=== PATIENT | female | born 1945 | race Caucasian/White ===

== ENCOUNTER 2022-06-14 07:07 | Inpatient (IN) | payer MEDICARE, MEDICAID, SELFPAY ==
--- NOTE | ~2022-06-14 | XR_ITS ---
EXAMINATION: XR chest 1V CLINICAL INFORMATION: Reason for Exam ?Infiltrate on CT COMPARISON: None TECHNIQUE: XR chest 1V Tubes and lines: None Lungs and pleura: Mild infiltrate/atelectasis at right lung base medially. Heart and mediastinum: The mediastinum is within normal limits.. Bones/soft tissue: Skeletal structures included are normal for patient's age. XR/XR chest 1V IMPRESSION: * Mild infiltrate/atelectasis at right lung base medially. * No pleural effusion.
--- NOTE | ~2022-06-14 | CT_ITS ---
EXAMINATION: CT abdomen pelvis wo IV con CLINICAL INFORMATION: Reason for Exam eval suprapubic cath placement ?not draining COMPARISON: No prior CT available for comparison. TECHNIQUE: Multidetector volumetric imaging was performed from the superior aspect of the liver through the pubic symphysis , noncontrasted study Sagittal and coronal reformatted images were obtained on the technologist's workstation. This CT examination was performed using dose optimization techniques as appropriate, variously including the following: *Automated exposure control *Adjustment of mA and/or kV according to patient size (this includes techniques or standardized protocols for targeted exams where dose is matched to indication/reason for exam; i.e. extremities or head) *Use of iterative reconstruction technique DLP: 378 mGy-cm FINDINGS: LOWER THORAX: There is subsegmental atelectasis, mild infiltrate at posterior right lung base. HEPATOBILIARY: No focal hepatic lesions. No biliary ductal dilatation. GALLBLADDER: Layering hyperdense material within the gallbladder likely gallstones. SPLEEN: Spleen is normal in size. PANCREAS: Small atrophic pancreas. STOMACH AND GASTROINTESTINAL TRACT: Stomach is grossly unremarkable. There is excess amount of stool in the rectum suggesting constipation and probably fecal impaction. No CT evidence of appendicitis. ADRENALS: No adrenal nodules. KIDNEYS/URETERS: Mild left renal hydronephrosis. Large staghorn calculus left renal pelvis measure up to 3 x 0.8 cm filling the middle and lower calyces and extend into the proximal ureter, additional nonobstructing stone in the upper calyces measuring 0.4 cm and 0.7 cm. There are no stones in the right kidney, there are vascular calcifications. URINARY BLADDER: There is a Shaver catheter in place, urinary bladder is partially decompressed, there are multiple large stones within the bladder some of which measuring up to 2 cm. There is circumferential wall thickening of the urinary bladder which could be due to chronic outflow obstruction and or cystitis. PELVIC VISCERA: Unremarkable PERITONEUM: No free air or fluid. LYMPH NODES: No lymphadenopathy. VASCULAR:There are heavy aortic vascular calcifications. No aneurysm. BONES, ABDOMINAL WALL AND SOFT TISSUES: Early advanced spondylosis of the lumbar spine, mild partial compression fracture superior endplate of L2, degenerative disc disease. Levoscoliosis. CT/CT abdomen pelvis wo IV con IMPRESSION: * Large staghorn calculus left renal pelvis extending into the proximal left ureter, mild left renal hydronephrosis. * There are multiple large stones within the urinary bladder some of which measure up to 2 cm. * There is circumferential wall thickening of the urinary bladder which could be due to chronic outflow obstruction and/or cystitis. * Large amount of stool in the rectum suggesting constipation and probably fecal impaction. * Mild infiltrate and subsegmental atelectasis at posterior right lung base. * Cholelithiasis. * Other noncritical findings include atrophic pancreas, heavy vascular calcifications, spondylosis of the lumbar spine, mild partial compression fracture superior endplate of L2.
[2022-06-14 07:23] VITALS: BP 140/82; BP 171/73; PULSE 64; PULSE 72; RESP 17; TEMP 36.7; O2SAT 93; O2SAT 97; BMI 21.9
--- NOTE | 2022-06-14 07:29 | PC.NURSE ---
Pt arrived from [facility] via EMS. She is reportedly having no output from suprapubic catheter. She is at baseline orientation, EMS denies fever. 7/10 pain noted with palpitation. bladder scan showing <75cc in bladder.
--- NOTE | 2022-06-14 08:10 | ED.GENADULT ---
HPI - General Adult General Chief complaint: General Medical Stated complaint: F/C ISSUE FROM SNF PER EMS Time Seen by Provider: 06/14/22 08:00 Source: patient and EMS Mode of arrival: EMS History of Present Illness HPI narrative: 76-year-old female with a past medical history of MS, HTN, neuromuscular dysfunction of bladder with suprapubic catheter, depression, delusional disorder, HLD, GERD, presenting to the ED via EMS from [facility] for noted blocked suprapubic catheter on overnight shift. Patient reports lower abdominal discomfort. Small amount of yellow urine in Shaver bag. Denies fever, chills, nausea/vomiting, diarrhea Onset (ago): day(s) Related Data Home Medications Medication Instructions Recorded Confirmed acetaminophen 325 mg tablet 650 mg PO Q6H PRN Pain 06/14/22 06/14/22 (Tylenol) baclofen 5 mg tablet 15 mg PO TID 06/14/22 06/14/22 benztropine 0.5 mg tablet 0.5 mg PO DAILY 06/14/22 06/14/22 bisacodyl 10 mg rectal suppository 10 mg [place] DAILY PRN Constipation 06/14/22 06/14/22 bisacodyl 5 mg tablet,delayed 10 mg PO BEDTIME PRN Constipation 06/14/22 06/14/22 release calcium carbonate 200 mg calcium 200 mg PO DAILY 06/14/22 06/14/22 (500 mg) chewable tablet (Calcium Antacid) duloxetine 60 mg capsule,delayed 60 mg PO DAILY 06/14/22 06/14/22 release estradiol 0.01% (0.1 mg/gram) 1 appful vaginal MOWEFR@2100 06/14/22 06/14/22 vaginal cream furosemide 20 mg tablet 20 mg PO DAILY 06/14/22 06/14/22 magnesium hydroxide 400 mg/5 mL 30 ml PO DAILY PRN Constipation 06/14/22 06/14/22 oral suspension (Milk of Magnesia) menthol 0.44 %-zinc oxide 20.6 % 1 appl topical BID 06/14/22 06/14/22 topical ointment (Calmoseptine) menthol 5 % topical patch (Icy Hot 1 patch topical DAILY 06/14/22 06/14/22 (menthol)) methenamine mandelate 1 gram tablet 1 g PO BID 06/14/22 06/14/22 metoprolol tartrate 25 mg tablet 25 mg PO BID 06/14/22 06/14/22 mirabegron 50 mg tablet,extended 50 mg PO DAILY 06/14/22 06/14/22 release 24 hr (Myrbetriq) nystatin 100,000 unit/gram topical 1 appl topical TID PRN Rash 06/14/22 06/14/22 powder omeprazole 20 mg capsule,delayed 20 mg PO DAILY@0630 06/14/22 06/14/22 release oxybutynin chloride 5 mg tablet 5 mg PO DAILY 06/14/22 06/14/22 polyethylene glycol 3350 17 gram 17 g PO Q OTHER DAY 06/14/22 06/14/22 oral powder packet (Miralax) sennosides 8.6 mg tablet (senna) 8.6 mg PO DAILY 06/14/22 06/14/22 Allergies Allergy/AdvReac Type Severity Reaction Status Date / Time No Known Allergies Allergy Verified 06/14/22 07:32 Review of Systems Review of Systems: Constitutional: No Fever, No Chills, No Fatigue, No Malaise ENT/Mouth: No Ear Pain, No sore throat, No Rhinorrhea, No Swallowing Difficulty Eyes: No Eye Pain, No Swelling, No Vision Changes Cardiovascular: No Chest Pain, No SOB, No Edema, No Palpitations Respiratory: No Cough, No Dyspnea Gastrointestinal: No Nausea, No Vomiting, No Diarrhea, No Constipation, + Abdominal pain Genitourinary: No irregular bleeding, No Dysuria, No Urinary Frequency, No Hematuria, No Urinary Incontinence/retention, No Flank Pain, + Urinary Flow Changes, No Hesitancy Musculoskeletal: No joint pain, No Myalgias, No Joint Swelling Skin: No Skin Lesions, No rash Neuro: No Weakness, No Headache Yes all other systems are reviewed and are negative Constitutional: Constitutional: Reports as per [facility] Past Medical History Attestation statement: The following information was validated with the patient. Medical History (Updated 06/14/22 @ 12:24 by ELSA Rosas) Depression HTN (hypertension) Multiple sclerosis Neuromuscular dysfunction of bladder Suprapubic catheter Social History Social History (Updated 06/14/22 @ 12:25 by ELSA Rosas) [facility]: [facility] Alcohol intake: never Patient Tobacco Use Status: Never used Tobacco Physical Exam ED Vital Signs: Vital Signs - 24 hr 06/14/22 07:23 06/14/22 10:40 Temperature 98.1 F 97.8 F Pulse Rate 64 61 Respiratory Rate 17 14 Blood Pressure 171/73 H 189/81 H Pulse Oximetry 93 96 Oxygen Delivery Method Room Air Room Air BMI result Body Mass Index 21.9 Const General: cooperative, healthy appearing and no acute distress Orientation/consciousness: patient oriented x3 Limitations: no limitations HENMT Head: Yes normal to inspection and Yes atraumatic Ears: hearing grossly normal bilaterally General nose exam: Normal external nose present Face and sinus: Yes normal facial exam Eyes General: appearance normal, both eyes and all related structures EOM: EOMs intact bilaterally Neck Neck: Yes normal visual inspection and Yes no meningeal signs Resp Effort & Inspection: normal respiratory effort and no respiratory distress Auscultation: clear to auscultation bilaterally Cardio Rate: regular rate Heart sounds: S1 normal heart sound present and S2 normal heart sound present GI Other: +suprapubic catheter noted to suprapubic region, no surrounding erythema/drainage. No fluctuance Inspection: Yes normal to inspection Palpation (GI): Soft to palpation, Tenderness to palpation present (GI) in the RLQ and suprapubicly; with no rebound tenderness, no guarding and not rigid Skin Rashes: no rashes Wounds: no wounds Neuro General: patient oriented x3, tone normal and no meningeal signs Gait exam (Neuro): Normal gait present Extrem General: Yes normal to inspection Course Course Course Narrative: -0930--no leukocytosis. Labs otherwise reassuring, renal function WNL CT abdomen pelvis wo IV con IMPRESSION:? *? Large staghorn calculus left renal pelvis extending into the proximal left ureter, mild left renal hydronephrosis. ? *? There are multiple large stones within the urinary bladder some of which measure up to 2 cm. ? *? There is circumferential wall thickening of the urinary bladder which could be due to chronic outflow obstruction and/or cystitis. ? *? Large amount of stool in the rectum suggesting constipation and probably fecal impaction. ? *? Mild infiltrate and subsegmental atelectasis at posterior right lung base. ? *? Cholelithiasis. ? *? Other noncritical findings include atrophic pancreas, heavy vascular calcifications, spondylosis of the lumbar spine, mild partial compression fracture superior endplate of L2. >> 0993--bedside fecal impaction performed with good success. Patient tolerated procedure well. Will consult Urology, Dr. Vance > Dr. Vance recommended admission, will perform procedure to break bladder stones tomorrow Medications Administered Generic Name Dose Route Start Last Admin Trade Name Freq PRN Reason Stop Dose Admin Albuterol/Ipratropium 3 ml 06/14/22 16:00 06/14/22 16:23 Albuterol/Iprat 2.5/0.5mg 3 Ml Ampul.Neb INHALE Not Given RQ4H WHILE AWAKE PATTIE Baclofen 15 mg 06/14/22 15:00 06/14/22 15:24 Baclofen 10 Mg Tablet PO 15 mg TID PATTIE Administration Morphine Sulfate 2 mg 06/14/22 15:04 06/14/22 15:29 Morphine Sulfate 2 Mg/Ml Cartridge IVPUSH 2 mg Q4H PRN Administration Pain, Severe (Pain Scale 7-10) Protocol Sodium Chloride 3 ml 06/14/22 16:00 06/14/22 17:00 0.9 % Sodium Chloride Flush 3 Ml Syringe IVFLUSH 3 ml QSHIFT PATTIE Administration Discontinued Medications Generic Name Dose Route Start Last Admin Trade Name Freq PRN Reason Stop Dose Admin Hydralazine HCl 5 mg 06/14/22 15:04 06/14/22 15:27 Hydralazine Hcl 20 Mg/Ml Vial IVPUSH 06/14/22 15:05 5 mg ONCE ONE Administration Protocol Ceftriaxone Sodium 1 gm/ 50 mls @ 100 mls/hr 06/14/22 09:29 06/14/22 10:34 Sodium Chloride IV 06/14/22 09:58 Infused ONCE ONE Infusion Mineral Oil 133 ml 06/14/22 09:32 06/14/22 10:00 Mineral Oil Enema 133 Ml Enema MO 06/14/22 09:33 133 ml ONCE ONE Administration Medical Decision Making Medical Decision Making MDM Narrative: 76-year-old female with a past medical history of MS, HTN, neuromuscular dysfunction of bladder with suprapubic catheter, depression, delusional disorder, HLD, GERD, presenting to the ED via EMS from [facility] for noted blocked suprapubic catheter on overnight shift. On exam vital signs stable, NAD, nontoxic appearing, abdomen soft with lower abdomen/suprapubic tenderness, catheter noted in place without surrounding cellulitis or abscess formation. No drainage from site. Small amount of yellow urine in Shaver bag. Concern for UTI vs blockage vs catheter displacement vs ?Appendicitis/diverticulitis 76 cc on bladder scan Plan: Labs, UA, CT AP, flush catheter Please refer to course for remaining clinical decision making, interpretation of labs/imaging results, and discussions with consultants and/or family members. Differential Diagnosis Differential Diagnoses: The differential diagnosis associated with the presentation includes As above Admission/Observation Consideration of admission/observation: Escalation of care including admission/observation considered Consult Healthcare Provider Management of the patient was discussed with: Lure Maker Lab Data MDM Lab Attestation statement: I reviewed the patient's lab results. 06/14/22 08:17 06/14/22 08:17 Labs: Lab Results 06/14/22 06/14/22 06/14/22 Range/Units 08:17 08:17 08:39 WBC 8.4 (4.8-10.8) X10*3/uL RBC 4.92 (4.20-5.50) X10*6/uL Hgb 14.6 (12.0-16.0) g/dl Hct 43.9 (37.0-47.0) % MCV 89.2 (80.0-98.0) fL MCH 29.7 (27.0-33.0) pg MCHC 33.3 (31.0-35.0) g/dl RDW 14.3 (11.0-16.0) % Plt Count 238 (160-400) X10*3/uL MPV 9.7 (9.4-12.3) fL Immature Gran % (Auto) 0.4 (0.0-0.4) % Neut % (Auto) 71.9 (45-73) % Lymph % (Auto) 18.4 L (20-40) % Dolores % (Auto) 5.5 (2-11) % Eos % (Auto) 3.2 (0-4) % Baso % (Auto) 0.6 (0-2) % Lymph # (Auto) 1.5 (1.2-4.9) X10*3/uL Dolores # (Auto) 0.5 (0.1-1.2) X10*3/uL Eos # (Auto) 0.3 (0.0-0.4) X10*3/uL Baso # (Auto) 0.1 (0.0-0.2) X10*3/uL Abs Immat Gran (auto) 0.03 (0.00-0.03) X10*3/uL Absolute Neuts (auto) 6.0 (2.0-8.3) x10*3/uL Absolute Nucleated RBC 0.000 (0.0-0.012) X10*3/uL Nucleated RBC % (auto) 0.0 (0.0-0.2) /100WBC Sodium 140 (135-145) mmol/L Potassium 3.5 (3.3-5.1) mmol/L Chloride 106 (96-108) mmol/L Carbon Dioxide 25 (22-29) mmol/L Anion Gap 13 (12-20) BUN 11 (9-16) mg/dL Creatinine 0.70 (0.5-1.4) mg/dL Estim Creat Clear Calc 52.4 Estimated GFR > 60 Random Glucose 88 (60-115) mg/dL Calcium 8.8 (8.4-10.2) mg/dL Total Bilirubin 0.5 (0.0-1.0) mg/dL Direct Bilirubin < 0.2 (0.0-0.5) mg/dL AST 10 (5-31) U/L ALT < 6 (0-31) U/L Alkaline Phosphatase 75 (39-117) U/L Total Protein 5.9 L (6.5-8.0) g/dL Albumin 3.3 L (3.5-5.0) g/dL Lipase 21 (8-78) U/L Urine Color Yellow Urine Appearance Turbid Urine pH 8.0 (5.0-9.0) Ur Specific [place] <= 1.005 (1.005-1.025) Urine Protein 30 (1+) H (Neg-Trace) mg/dL Urine Glucose (UA) Negative (Negative) mg/dL Urine Ketones Negative (Negative) mg/dL Urine Blood Trace H (Negative) Urine Nitrite Negative (Negative) Ur Leukocyte Esterase Large (3+) H (Negative) Urine RBC 11-20 H (0-2) /HPF Urine WBC 11-20 H (0-5) /HPF Ur Squamous Epith Cells 6-10 (0-2) /HPF Other Crystals Present Urine Bacteria 4+ (None Seen) Hyaline Casts 0-2 (0-2) /LPF COVID-19 ([facility]) (Negative) COVID-19 Clin Com 06/14/22 Range/Units 10:05 WBC (4.8-10.8) X10*3/uL RBC (4.20-5.50) X10*6/uL Hgb (12.0-16.0) g/dl Hct (37.0-47.0) % MCV (80.0-98.0) fL MCH (27.0-33.0) pg MCHC (31.0-35.0) g/dl RDW (11.0-16.0) % Plt Count (160-400) X10*3/uL MPV (9.4-12.3) fL Immature Gran % (Auto) (0.0-0.4) % Neut % (Auto) (45-73) % Lymph % (Auto) (20-40) % Dolores % (Auto) (2-11) % Eos % (Auto) (0-4) % Baso % (Auto) (0-2) % Lymph # (Auto) (1.2-4.9) X10*3/uL [place] # (Auto) (0.1-1.2) X10*3/uL Eos # (Auto) (0.0-0.4) X10*3/uL Baso # (Auto) (0.0-0.2) X10*3/uL Abs Immat Gran (auto) (0.00-0.03) X10*3/uL Absolute Neuts (auto) (2.0-8.3) x10*3/uL Absolute Nucleated RBC (0.0-0.012) X10*3/uL Nucleated RBC % (auto) (0.0-0.2) /100WBC Sodium (135-145) mmol/L Potassium (3.3-5.1) mmol/L Chloride (96-108) mmol/L Carbon Dioxide (22-29) mmol/L Anion Gap (12-20) BUN (9-16) mg/dL Creatinine (0.5-1.4) mg/dL Estim Creat Clear Calc Estimated GFR Random Glucose (60-115) mg/dL Calcium (8.4-10.2) mg/dL Total Bilirubin (0.0-1.0) mg/dL Direct Bilirubin (0.0-0.5) mg/dL AST (5-31) U/L ALT (0-31) U/L Alkaline Phosphatase (39-117) U/L Total Protein (6.5-8.0) g/dL Albumin (3.5-5.0) g/dL Lipase (8-78) U/L Urine Color Urine Appearance Urine pH (5.0-9.0) Ur Specific [place] (1.005-1.025) Urine Protein (Neg-Trace) mg/dL Urine Glucose (UA) (Negative) mg/dL Urine Ketones (Negative) mg/dL Urine Blood (Negative) Urine Nitrite (Negative) Ur Leukocyte Esterase (Negative) Urine RBC (0-2) /HPF Urine WBC (0-5) /HPF Ur Squamous Epith Cells (0-2) /HPF Other Crystals Urine Bacteria (None Seen) Hyaline Casts (0-2) /LPF COVID-19 ([facility]) Negative (Negative) COVID-19 Clin Com See Note Radiology Impression Discussion of test interpretation with radiology: I have reviewed the radiologist's reading. External Record Review External record reviewed: Inpatient record, Office record, Outpatient record, Prior outpatient labs, Prior outpatient radiology, Primary care record and Outside ED record Discharge Plan Discharge Clinical Impression: Bladder stones, Acute UTI, Staghorn calculus, Fecal impaction Patient Disposition: Admitted As Inpatient Discharge Date/Time: 06/14/22 14:37
[2022-06-14 08:21] LABS: MANUAL DIFF FLAG NO
[2022-06-14 08:23] LABS: Basophils Absolute Auto 0.1 X10*3/uL (0.0-0.2); Basophils Percent Auto 0.6 % (0-2); Eosinophils Absolute Auto 0.3 X10*3/uL (0.0-0.4); Eosinophils Percent Auto 3.2 % (0-4); Hematocrit 43.9 % (37.0-47.0); Hemoglobin 14.6 g/dl (12.0-16.0); Imm Gran Abs Auto 0.03 X10*3/uL (0.00-0.03); Imm Gran Pct Auto 0.4 % (0.0-0.4); Lymphocytes Absolute Auto 1.5 X10*3/uL (1.2-4.9); Lymphocytes Percent Auto 18.4 % (20-40); Mean Corpuscular HGB Conc 33.3 g/dl (31.0-35.0); Mean Corpuscular Hemoglobin 29.7 pg (27.0-33.0); Mean Corpuscular Volume 89.2 fL (80.0-98.0); Mean Platelet Volume 9.7 fL (9.4-12.3); Monocytes Absolute Auto 0.5 X10*3/uL (0.1-1.2); Monocytes Percent Auto 5.5 % (2-11); Neutrophils Percent Auto 71.9 % (45-73); Platelet Count 238 X10*3/uL (160-400); Red Blood Count 4.92 X10*6/uL (4.20-5.50); Red Cell Distribution Width 14.3 % (11.0-16.0); White Blood Count 8.4 X10*3/uL (4.8-10.8)
[2022-06-14 08:45] LABS: Appearance Urine Turbid; Color Urine Yellow; Glucose Urine UA Negative (Negative); Leukocyte Esterase Urine Large (3+) (Negative); Nitrite Urine Negative (Negative); Specific Gravity - Urine <= 1.005 (1.005-1.025); UMIC TRIGGER UACC YES; Urine Blood Trace (Negative); Urine Ketones Negative (Negative); Urine Protein 30 (1+) mg/dL (Neg-Trace)
[2022-06-14 08:55] LABS: Alanine Aminotransferase < 6 U/L (0-31); Albumin Level 3.3 g/dL (3.5-5.0); Alkaline Phosphatase 75 U/L (39-117); Anion Gap 13 (12-20); Aspartate Amino Transferase 10 U/L (5-31); Bilirubin Direct < 0.2 mg/dL (0.0-0.5); Bilirubin Total 0.5 mg/dL (0.0-1.0); Blood Urea Nitrogen 11 mg/dL (9-16); Calcium 8.8 mg/dL (8.4-10.2); Carbon Dioxide 25 mmol/L (22-29); Chloride 106 mmol/L (96-108); Creatinine Clr Calc Pharmacy 52.4; Estimated Glomerular Filt Rate > 60; Glucose Random 88 mg/dL (60-115); Lipase 21 U/L (8-78); Potassium 3.5 mmol/L (3.3-5.1); Sodium 140 mmol/L (135-145); Total Protein 5.9 g/dL (6.5-8.0)
[2022-06-14 08:57] LABS: Bacteria Urine 4+ (None Seen); Hyaline Casts Urine 0-2 /LPF (0-2); Other Crystals Urine Present; UACC Culture Trigger YES
[2022-06-14] MEDS: Mineral OiL enema 133 ML ENEMA PR (10:00)
[2022-06-14] MEDS: cefTRIAXone sodium 1 GM in 0.9 % Sodium Chloride 50 ML IV (10:00)
--- NOTE | 2022-06-14 10:09 | PC.NURSE ---
Pt suprapubic attempted to be flushed, unable to flush, but able to aspirate 60cc of urine, and sediment. PA aware, also attempted at bedside to aspiate and flush. Pt manually disempacted by PA. Enema given per order. Will attempt flush suprapubic again.
[2022-06-14 10:30] LABS: COVID-19 Test Negative (Negative); IDNOW Serial# BCCEAD1C
[2022-06-14 10:40] VITALS: BP 189/81; PULSE 61; RESP 14; TEMP 36.6; O2SAT 96
--- NOTE | 2022-06-14 11:35 | PHA.MEDREC ---
Pharmacy Consult ? Medication Reconciliation Pharmacy has completed the medication reconciliation. Patient had list from [facility].
--- NOTE | 2022-06-14 12:15 | PM.IMHP ---
History of Present Illness Date of Service: 06/14/22 Attending physician on admission: Ezequiel Wallace Chief Complaint: Catheter not draining This is a 76 year old resident of [facility] with history of MS, neuromuscular bladder dysfunction status post suprapubic catheter placement who was sent to the emergency department for evaluation of nonfunctioning catheter. Patient reports lower abdominal discomfort. She denies any associated fever or chills. In the emergency department she underwent CT scan of the abdomen which showed large staghorn calculus in the left renal pelvis extending into the left ureter with mild left hydronephrosis, multiple large stones within the urinary bladder and circumferential wall thickening of the urinary bladder due to chronic outflow obstruction and/or cystitis. CT scan also has showed evidence of constipation and probable fecal impaction. She underwent manual disimpaction in the emergency department. Urology was consulted for obstruction of suprapubic catheter and bladder stones. urinalysis was consistent with urinary tract infection and she was started on IV ceftriaxone. Review of Systems Review of Systems: Yes all other systems are reviewed and are negative Constitutional: Constitutional: Denies chills and Denies fever(s) Cardiovascular: Cardiovascular: Denies chest pain, Denies palpitations and Denies dyspnea Respiratory: Respiratory: Denies cough and Denies dyspnea Gastrointestinal: Gastrointestinal: Reports abdominal pain, Denies nausea and Denies vomiting Endocrine: Endocrine: Denies palpitations [facility] Medical History (Updated 06/14/22 @ 12:24 by ELSA Rosas) Depression HTN (hypertension) Multiple sclerosis Neuromuscular dysfunction of bladder Suprapubic catheter Social History (Updated 06/14/22 @ 12:25 by ELSA Rosas) Housing: Retirement Alcohol intake: never Patient Tobacco Use Status: Never used Tobacco Meds Allergies Allergy/AdvReac Type Severity Reaction Status Date / Time No Known Allergies Allergy Verified 06/14/22 07:32 Home Medications Medication Instructions Recorded Confirmed Last Taken Type acetaminophen 325 mg tablet 650 mg PO Q6H PRN Pain 06/14/22 06/14/22 Unknown History (Tylenol) baclofen 5 mg tablet 15 mg PO TID 06/14/22 06/14/22 Unknown History benztropine 0.5 mg tablet 0.5 mg PO DAILY 06/14/22 06/14/22 Unknown History bisacodyl 10 mg rectal suppository 10 mg [place] DAILY PRN Constipation 06/14/22 06/14/22 Unknown History bisacodyl 5 mg tablet,delayed 10 mg PO BEDTIME PRN Constipation 06/14/22 06/14/22 Unknown History release calcium carbonate 200 mg calcium 200 mg PO DAILY 06/14/22 06/14/22 Unknown History (500 mg) chewable tablet (Calcium Antacid) duloxetine 60 mg capsule,delayed 60 mg PO DAILY 06/14/22 06/14/22 Unknown History release estradiol 0.01% (0.1 mg/gram) 1 appful vaginal MOWEFR@2100 06/14/22 06/14/22 Unknown History vaginal cream furosemide 20 mg tablet 20 mg PO DAILY 06/14/22 06/14/22 Unknown History magnesium hydroxide 400 mg/5 mL 30 ml PO DAILY PRN Constipation 06/14/22 06/14/22 Unknown History oral suspension (Milk of Magnesia) menthol 0.44 %-zinc oxide 20.6 % 1 appl topical BID 06/14/22 06/14/22 Unknown History topical ointment (Calmoseptine) menthol 5 % topical patch (Icy Hot 1 patch topical DAILY 06/14/22 06/14/22 Unknown History (menthol)) methenamine mandelate 1 gram tablet 1 g PO BID 06/14/22 06/14/22 Unknown History metoprolol tartrate 25 mg tablet 25 mg PO BID 06/14/22 06/14/22 Unknown History mirabegron 50 mg tablet,extended 50 mg PO DAILY 06/14/22 06/14/22 Unknown History release 24 hr (Myrbetriq) nystatin 100,000 unit/gram topical 1 appl topical TID PRN Rash 06/14/22 06/14/22 Unknown History powder omeprazole 20 mg capsule,delayed 20 mg PO DAILY@0630 06/14/22 06/14/22 Unknown History release oxybutynin chloride 5 mg tablet 5 mg PO DAILY 06/14/22 06/14/22 Unknown History polyethylene glycol 3350 17 gram 17 g PO Q OTHER DAY 06/14/22 06/14/22 Unknown History oral powder packet (Miralax) sennosides 8.6 mg tablet (senna) 8.6 mg PO DAILY 06/14/22 06/14/22 Unknown History Physical Exam Vital Signs and Narrative: Vital Signs: Last Vital Signs Temp 97.8 F 06/14/22 10:40 Pulse 61 06/14/22 10:40 Resp 14 06/14/22 10:40 BP 189/81 H 06/14/22 10:40 Pulse Ox 96 06/14/22 10:40 O2 Del Method Room Air 06/14/22 10:40 BMI result Body Mass Index 21.9 Const: Other: chronically ill appearing General: alert and awake Nutritional Appearance: thin Resp: Effort & Inspection: normal respiratory effort, able to speak in complete sentences, no respiratory distress and no use of accessory muscles GI: Other: mild suprapubic tenderness Inspection: No distended Palpation (GI): Soft to palpation : Other: Suprapubic catheter in place, no surrounding erythema. Minimal urine output Extrem: General: Yes no pedal edema Results Labs 06/14/22 08:17 06/14/22 08:17 Labs: Laboratory Results - last 24 hr 06/14/22 06/14/22 06/14/22 08:17 08:17 08:39 MCV 89.2 MCH 29.7 MCHC 33.3 RDW 14.3 Plt Count 238 MPV 9.7 Immature Gran % (Auto) 0.4 Neut % (Auto) 71.9 Lymph % (Auto) 18.4 L [place] % (Auto) 5.5 Eos % (Auto) 3.2 Baso % (Auto) 0.6 Lymph # (Auto) 1.5 [place] # (Auto) 0.5 Eos # (Auto) 0.3 Baso # (Auto) 0.1 Abs Immat Gran (auto) 0.03 Absolute Neuts (auto) 6.0 Absolute Nucleated RBC 0.000 Nucleated RBC % (auto) 0.0 Anion Gap 13 Estim Creat Clear Calc 52.4 Estimated GFR > 60 Random Glucose 88 Calcium 8.8 Total Bilirubin 0.5 Direct Bilirubin < 0.2 AST 10 ALT < 6 Alkaline Phosphatase 75 Total Protein 5.9 L Albumin 3.3 L Lipase 21 Urine Color Yellow Urine Appearance Turbid Urine pH 8.0 Ur Specific [place] <= 1.005 Urine Protein 30 (1+) H Urine Glucose (UA) Negative Urine Ketones Negative Urine Blood Trace H Urine Nitrite Negative Ur Leukocyte Esterase Large (3+) H Urine RBC 11-20 H Urine WBC 11-20 H Ur Squamous Epith Cells 6-10 Other Crystals Present Urine Bacteria 4+ Hyaline Casts 0-2 COVID-19 ([facility]) COVID-19 Clin Com 06/14/22 10:05 MCV MCH MCHC RDW Plt Count MPV Immature Gran % (Auto) Neut % (Auto) Lymph % (Auto) [place] % (Auto) Eos % (Auto) Baso % (Auto) Lymph # (Auto) [place] # (Auto) Eos # (Auto) Baso # (Auto) Abs Immat Gran (auto) Absolute Neuts (auto) Absolute Nucleated RBC Nucleated RBC % (auto) Anion Gap Estim Creat Clear Calc Estimated GFR Random Glucose Calcium Total Bilirubin Direct Bilirubin AST ALT Alkaline Phosphatase Total Protein Albumin Lipase Urine Color Urine Appearance Urine pH Ur Specific [place] Urine Protein Urine Glucose (UA) Urine Ketones Urine Blood Urine Nitrite Ur Leukocyte Esterase Urine RBC Urine WBC Ur Squamous Epith Cells Other Crystals Urine Bacteria Hyaline Casts COVID-19 ([facility]) Negative COVID-19 Clin Com See Note Imaging Radiologist's Impressions: Impressions Abdomen/Pelvis CT 06/14/22 08:35 IMPRESSION: * Large staghorn calculus left renal pelvis extending into the proximal left ureter, mild left renal hydronephrosis. * There are multiple large stones within the urinary bladder some of which measure up to 2 cm. * There is circumferential wall thickening of the urinary bladder which could be due to chronic outflow obstruction and/or cystitis. * Large amount of stool in the rectum suggesting constipation and probably fecal impaction. * Mild infiltrate and subsegmental atelectasis at posterior right lung base. * Cholelithiasis. * Other noncritical findings include atrophic pancreas, heavy vascular calcifications, spondylosis of the lumbar spine, mild partial compression fracture superior endplate of L2. Chest X-Ray 06/14/22 09:38 IMPRESSION: * Mild infiltrate/atelectasis at right lung base medially. * No pleural effusion. Assessment and Plan (1) Fecal impaction: Status: Acute (2) Acute UTI: Status: Acute (3) Bladder stones: Status: Acute Plan this is a 76-year-old female with history of MS, neuromuscular dysfunction of the bladder status post suprapubic catheter placement, hypertension, depression, resident of [facility] who was sent to the emergency department for evaluation blockage of suprapubic catheter found to have bladder stones, UTI acute UTI r/t suprapubic catheter blockage/bladder stones no sepsis -Continue IV ceftraxone -follow urine cultures Bladder stones/catheter obstruction plan for urological procedure tomorrow with Dr. Vance NPO at midnight constipation s/p fecal disimpaction in ED bowel regimen MS continue baclofen Mood continue duloxetine HTN continue metoprolol hold lasix bladder dysfunction continue myrbetriq, oxybutynin dvt ppx - mechanical devices, due to plan for procedure in am code status - FULL CODE. paperwork from facility list code status as do not resuscitate. This was reviewed with the patient and her at the bedside who indicate wishes for patient to be a full code. HCP - daughter Isis Attending - Dr. Wallace patient will likely require 2 midnight stay in the hospital for management of UTI, bladder stones requiring surgical intervention, constipation Time Spent With Patient Time: Total time managing care of this patient today ____ minutes. Quality Stroke Does the patient have a stroke diagnosis?: No VTE Prior VTE?: No VTE Risk Level:: Medical - moderate - high VTE Device Contraindication: N/A - Device Ordered VTE Drug Contraindication: Treatment Not Indicated
--- NOTE | 2022-06-14 14:17 | PC.NURSE ---
report given to Areli RAYA on floor, pt to be transported up to new bed shortly, transport made aware of move.
[2022-06-14 14:41] VITALS: PULSE 64; RESP 20; TEMP 36.4; O2SAT 96
[2022-06-14 15:02] VITALS: BP 190/80
[2022-06-14 15:08] VITALS: BMI 21.9
[2022-06-14] MEDS: Baclofen 10 MG TABLET 15 MG PO ×2 (15:24→21:08)
--- NOTE | 2022-06-14 15:24 | P.EN_ITS ---
Event Note Date of Service: 06/14/22 Event Note: This patient is seen and examined with APC. 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 In addition patient had fecal impaction which is relieved at bedside. Lab imaging, EKG reviewed. UA seems -has pyuria and bacteriuria as well as leuko esterase positive. Urine culture pending CBC and BMP seems fine. cxr-? Mild infiltrate versus atelectasis. ct abd: Shows large staghorn calculi left side, multiple large stone within the urinary bladder. Circumferential thickening of urinary bladder possible cystitis, Large amount of stool possible constipation. Physical exam and assessment and plan coordinated in APCs note, Agree with the plan in addition: Possible UTI: Continue IV antibiotics, urine culture pending. ? Blood pressure suboptimal: Continue patient's home metoprolol, added IV hydralazine, may start amlodipine for the morning. Severe constipation: Fecal disimpaction was done at bedside by ED, add laxative . Frequent turning, if possible out of bed to chair, incentive spirometry and chest physiotherapy, nebs for possible finding on the chest x-ray atelectasis. Urology evaluation for urinary catheter malfunction. Time Spent With Patient Time: Total time managing care of this patient today ____ minutes.
[2022-06-14] MEDS: hydrALAZINE HCl 20 MG/ML VIAL 5 MG IVPUSH (15:27)
[2022-06-14] MEDS: Morphine Sulfate 2 MG/ML CARTRIDGE IVPUSH (15:29)
[2022-06-14 16:00] VITALS: PULSE 66; RESP 20; TEMP 36.7; O2SAT 96
[2022-06-14] MEDS: 0.9 % Sodium Chloride Flush 3 ML SYRINGE IVFLUSH ×2 (17:00→21:11)
[2022-06-14 20:00] VITALS: BP 126/54; PULSE 86; RESP 18; TEMP 36.4; O2SAT 96
[2022-06-14] MEDS: Docusate Sodium 100 MG CAPSULE PO (21:06)
[2022-06-14] MEDS: Metoprolol Tartrate 25 MG TABLET PO (21:07)
[2022-06-15] VITALS (12 sets, daily range): BP systolic 122–217; BP diastolic 65–101; PULSE 68–84; RESP 13–18; TEMP 36–36.9; O2SAT 93–100
[2022-06-15] MEDS: Morphine Sulfate 2 MG/ML CARTRIDGE IVPUSH (00:26)
[2022-06-15 07:52] LABS: Anion Gap 13 (12-20); Blood Urea Nitrogen 11 mg/dL (9-16); Calcium 9.2 mg/dL (8.4-10.2); Carbon Dioxide 27 mmol/L (22-29); Chloride 105 mmol/L (96-108); Creatinine Clr Calc Pharmacy 52.4; Estimated Glomerular Filt Rate > 60; Glucose Random 108 mg/dL (60-115); Sodium 141 mmol/L (135-145)
[2022-06-15] MEDS: Albuterol/Iprat 2.5/0.5MG 3 ML AMPUL.NEB INHALE (07:52)
--- NOTE | 2022-06-15 07:54 | PC.RT ---
Svn given as compound, unable to scan as no Duoneb available, Pharmacy aware.
--- NOTE | 2022-06-15 08:01 | PM.UROCN ---
History of Present Illness Consult details Consult date: 06/15/22 Narrative: Consulting complaint: Difficult draining suprapubic tube 76-year-old female A background of multiple sclerosis Long-term care Suprapubic tube in place Followed by Dr. Martin Present through emergency room with suprapubic tube drainage issues On CT scan found to have substantial stone burden In particular staghorn calculus within left kidney, multiple stones within bladder Discussed with patient and Recommend cystoscopy with bladder stone removals Review of Systems Constitutional: Constitutional: Reports as per HPI and Reports no additional constitutional complaints Cardiovascular: Cardiovascular: Reports as per HPI and Reports no additional cardiovascular complaints Respiratory: Respiratory: Reports as per HPI and Reports no additional respiratory complaints Gastrointestinal: Gastrointestinal: Reports as per HPI and Reports no additional gastrointestinal complaints Genitourinary: Genitourinary: Reports as per HPI Musculoskeletal: Musculoskeletal: Reports no additional musculoskeletal complaints and Reports as per HPI Neurologic: Reports system reviewed and no additional complaints, except as documented and Reports as per HPI PMF Past Medical History Medical History (Updated 06/14/22 @ 12:24 by ELSA Rosas) Depression HTN (hypertension) Multiple sclerosis Neuromuscular dysfunction of bladder Suprapubic catheter Social History Social History (Updated 06/14/22 @ 12:25 by ELSA Rosas) Housing: [facility] Alcohol intake: never Patient Tobacco Use Status: Never used Tobacco Meds Allergies Allergy/AdvReac Type Severity Reaction Status Date / Time No Known Allergies Allergy Verified 06/14/22 07:32 Active Medications: Current Medications Acetaminophen (Acetaminophen 325 Mg Tablet) 650 mg PO Q6H PRN PRN Reason: Pain, Mild (Pain Scale 1-3) Albuterol/Ipratropium (Albuterol/Iprat 2.5/0.5mg 3 Ml Ampul.Neb) 3 ml INHALE RQ4H WHILE AWAKE [facility] Last Admin: 06/15/22 07:52 Dose: 3 ml Amlodipine Besylate (Amlodipine Besylate 2.5 Mg Tablet) 2.5 mg PO DAILY [facility]; Protocol Baclofen (Baclofen 10 Mg Tablet) 15 mg PO TID [facility] Last Admin: 06/14/22 21:08 Dose: 15 mg Benztropine Mesylate (Benztropine Mesylate 0.5 Mg Tablet) 0.5 mg PO DAILY [facility] Bisacodyl (Bisacodyl 10 Mg Supp.Rect) 10 mg CO DAILY PRN PRN Reason: Constipation Docusate Sodium (Docusate Sodium 100 Mg Capsule) 100 mg PO BEDTIME [facility] Last Admin: 06/14/22 21:06 Dose: 100 mg Duloxetine HCl (Duloxetine Hcl 60 Mg Capsule.Dr) 60 mg PO DAILY [facility] Ceftriaxone Sodium 1 gm/ (Sodium Chloride) 50 mls @ 100 mls/hr IV Q24H [facility] Levofloxacin (Levaquin) 500 mg in 100 mls @ 100 mls/hr IV PREOP ONE Stop: 06/15/22 08:48 Magnesium Hydroxide (Milk Of Magnesia 30 Ml Oral.Susp) 30 ml PO DAILY PRN PRN Reason: Constipation Metoprolol Tartrate (Metoprolol Tartrate 25 Mg Tablet) 25 mg PO BID [facility]; Protocol Last Admin: 06/14/22 21:07 Dose: 25 mg Mirabegron (Mirabegron 50 Mg Tab.Er.24h) 50 mg PO DAILY [facility] Morphine Sulfate (Morphine Sulfate 2 Mg/Ml Cartridge) 2 mg IVPUSH Q4H PRN; Protocol PRN Reason: Pain, Severe (Pain Scale 7-10) Last Admin: 06/15/22 00:26 Dose: 2 mg Nystatin (Nystatin Powder 15 Gm Bottle) 1 appl TOPICAL TID PRN; Protocol PRN Reason: Rash Omeprazole (Omeprazole 20 Mg Capsule.) 20 mg PO DAILY@0630 [facility] Last Admin: 06/15/22 05:38 Dose: Not Given Ondansetron HCl (Ondansetron Hcl 4 Mg/2 Ml Vial) 4 mg IVPUSH Q8H PRN PRN Reason: Nausea and Vomiting Oxybutynin Chloride (Oxybutynin Chloride 5 Mg Tablet) 5 mg PO DAILY [facility] Senna (Sennosides 8.6 Mg Tablet) 8.6 mg PO DAILY [facility] Sodium Chloride (0.9 % Sodium Chloride Flush 3 Ml Syringe) 3 ml IVFLUSH QSHIFT [facility] Last Admin: 06/14/22 21:11 Dose: 3 ml Home Medications Medication Instructions Recorded Confirmed Last Taken Type acetaminophen 325 mg tablet 650 mg PO Q6H PRN Pain 06/14/22 06/14/22 Unknown History (Tylenol) baclofen 5 mg tablet 15 mg PO TID 06/14/22 06/14/22 Unknown History benztropine 0.5 mg tablet 0.5 mg PO DAILY 06/14/22 06/14/22 Unknown History bisacodyl 10 mg rectal suppository 10 mg CO DAILY PRN Constipation 06/14/22 06/14/22 Unknown History bisacodyl 5 mg tablet,delayed 10 mg PO BEDTIME PRN Constipation 06/14/22 06/14/22 Unknown History release calcium carbonate 200 mg calcium 200 mg PO DAILY 06/14/22 06/14/22 Unknown History (500 mg) chewable tablet (Calcium Antacid) duloxetine 60 mg capsule,delayed 60 mg PO DAILY 06/14/22 06/14/22 Unknown History release estradiol 0.01% (0.1 mg/gram) 1 appful vaginal MOWEFR@2100 06/14/22 06/14/22 Unknown History vaginal cream furosemide 20 mg tablet 20 mg PO DAILY 06/14/22 06/14/22 Unknown History magnesium hydroxide 400 mg/5 mL 30 ml PO DAILY PRN Constipation 06/14/22 06/14/22 Unknown History oral suspension (Milk of Magnesia) menthol 0.44 %-zinc oxide 20.6 % 1 appl topical BID 06/14/22 06/14/22 Unknown History topical ointment (Calmoseptine) menthol 5 % topical patch (Icy Hot 1 patch topical DAILY 06/14/22 06/14/22 Unknown History (menthol)) methenamine mandelate 1 gram tablet 1 g PO BID 06/14/22 06/14/22 Unknown History metoprolol tartrate 25 mg tablet 25 mg PO BID 06/14/22 06/14/22 Unknown History mirabegron 50 mg tablet,extended 50 mg PO DAILY 06/14/22 06/14/22 Unknown History release 24 hr (Myrbetriq) nystatin 100,000 unit/gram topical 1 appl topical TID PRN Rash 06/14/22 06/14/22 Unknown History powder omeprazole 20 mg capsule,delayed 20 mg PO DAILY@0630 06/14/22 06/14/22 Unknown History release oxybutynin chloride 5 mg tablet 5 mg PO DAILY 06/14/22 06/14/22 Unknown History polyethylene glycol 3350 17 gram 17 g PO Q OTHER DAY 06/14/22 06/14/22 Unknown History oral powder packet (Miralax) sennosides 8.6 mg tablet (senna) 8.6 mg PO DAILY 06/14/22 06/14/22 Unknown History Physical Exam Vital Signs: Vital Signs: Last Vital Signs Temp 97.4 F 06/15/22 04:00 Pulse 70 06/15/22 07:52 Resp 16 06/15/22 07:52 BP 163/84 H 06/15/22 04:00 Pulse Ox 95 06/15/22 04:00 O2 Del Method Room Air 06/15/22 04:00 BMI result Body Mass Index 21.9 Const: General: cooperative, healthy appearing, comfortable and no acute distress Orientation/consciousness: patient oriented x3 HEENT: Face and sinus: Yes normal facial exam Mouth: moist mucous membranes Neck: Neck: Yes normal visual inspection, Yes full ROM and Yes trachea midline Chest: Chest palpation & inspection: normal inspection of the chest Resp: Effort & Inspection: normal respiratory effort, able to speak in complete sentences and no respiratory distress GI: Inspection: Yes normal to inspection Back/Spine/Pelvis: Cervical Spine: normal cervical lordosis Thoracic/Lumbar Spine: thoracic and lumbar spine normal to inspection Skin: General skin exam: no rashes or lesions noted Neuro: General: patient oriented x3, tone normal and moves all extremities Extrem: General: Yes normal to inspection and Yes capillary refill normal Results Labs 06/14/22 08:17 06/15/22 06:40 Labs: Abnormal lab results 06/14/22 06/14/22 06/14/22 Range/Units 08:17 08:17 08:39 Lymph % (Auto) 18.4 L (20-40) % Total Protein 5.9 L (6.5-8.0) g/dL Albumin 3.3 L (3.5-5.0) g/dL Urine Protein 30 (1+) H (Neg-Trace) mg/dL Urine Blood Trace H (Negative) Ur Leukocyte Esterase Large (3+) H (Negative) Urine RBC 11-20 H (0-2) /HPF Urine WBC 11-20 H (0-5) /HPF Short CBC 06/14/22 Range/Units 08:17 WBC 8.4 (4.8-10.8) X10*3/uL Hgb 14.6 (12.0-16.0) g/dl Hct 43.9 (37.0-47.0) % Plt Count 238 (160-400) X10*3/uL BMP 06/14/22 06/15/22 08:17 06:40 Sodium 140 141 Potassium 3.5 4.0 Chloride 106 105 Carbon Dioxide 25 27 BUN 11 11 Creatinine 0.70 0.70 Calcium 8.8 9.2 Liver Function 06/14/22 Range/Units 08:17 Total Bilirubin 0.5 (0.0-1.0) mg/dL Direct Bilirubin < 0.2 (0.0-0.5) mg/dL AST 10 (5-31) U/L ALT < 6 (0-31) U/L Alkaline Phosphatase 75 (39-117) U/L Albumin 3.3 L (3.5-5.0) g/dL Urine 06/14/22 Range/Units 08:39 Urine Color Yellow Urine Appearance Turbid Urine pH 8.0 (5.0-9.0) Ur Specific [place] <= 1.005 (1.005-1.025) Urine Protein 30 (1+) H (Neg-Trace) mg/dL Urine Glucose (UA) Negative (Negative) mg/dL All other labs normal. Assessment and Plan (1) Bladder stones: Status: Acute (2) Acute UTI: Status: Acute Plan Risks, benefits and alternatives to therapy were discussed. These include but are not limited to infection, bleeding, damage to local organs and tissues, need for further interventions. Anesthetic risks regarding cardiac arrhythmia, blood clots, and potential mortality were discussed. The patient understands the typical recovery time and the outpatient nature of the procedure. After consideration of these risks the patient gives full informed consent and they wish to move ahead with the procedure. Cysto, bladder stone removal Time Spent With Patient Time: Total time managing care of this patient today ____ minutes. Procedures Date of Service Date of Service: 06/14/22
[2022-06-15] MEDS: 0.9 % Sodium Chloride Flush 3 ML SYRINGE IVFLUSH ×3 (08:07→20:09)
--- NOTE | 2022-06-15 08:12 | P.CONAN_ITS ---
HPI - Anesthesia Eval Consult details Narrative: for cysto, bladder stone laser PMFSH Active Problems Active Problems: All Active Problems (Updated 06/14/22 @ 12:24 by ELSA Rosas) Bladder stones (Acute) Acute UTI (Acute) Staghorn calculus (Acute) Fecal impaction (Acute) Past Medical History Medical History (Updated 06/14/22 @ 12:24 by ELSA Rosas) Depression HTN (hypertension) Multiple sclerosis Neuromuscular dysfunction of bladder Suprapubic catheter Family History Family history of problems with anesthesia: No Surgical History History of Problems with Anesthesia: No Social History Social History (Updated 06/14/22 @ 12:25 by ELSA Rosas) Housing: [facility] Alcohol intake: never Patient Tobacco Use Status: Never used Tobacco Meds Allergies Allergy/AdvReac Type Severity Reaction Status Date / Time No Known Allergies Allergy Verified 06/14/22 07:32 Active Medications: Current Medications Acetaminophen (Acetaminophen 325 Mg Tablet) 650 mg PO Q6H PRN PRN Reason: Pain, Mild (Pain Scale 1-3) Albuterol/Ipratropium (Albuterol/Iprat 2.5/0.5mg 3 Ml Ampul.Neb) 3 ml INHALE RQ4H WHILE AWAKE [facility] Last Admin: 06/15/22 07:52 Dose: 3 ml Amlodipine Besylate (Amlodipine Besylate 2.5 Mg Tablet) 2.5 mg PO DAILY [facility]; Protocol Baclofen (Baclofen 10 Mg Tablet) 15 mg PO TID [facility] Last Admin: 06/14/22 21:08 Dose: 15 mg Benztropine Mesylate (Benztropine Mesylate 0.5 Mg Tablet) 0.5 mg PO DAILY [facility] Bisacodyl (Bisacodyl 10 Mg Supp.Rect) 10 mg ME DAILY PRN PRN Reason: Constipation Docusate Sodium (Docusate Sodium 100 Mg Capsule) 100 mg PO BEDTIME [facility] Last Admin: 06/14/22 21:06 Dose: 100 mg Duloxetine HCl (Duloxetine Hcl 60 Mg Capsule.Dr) 60 mg PO DAILY [facility] Ceftriaxone Sodium 1 gm/ (Sodium Chloride) 50 mls @ 100 mls/hr IV Q24H [facility] Levofloxacin (Levaquin) 500 mg in 100 mls @ 100 mls/hr IV PREOP ONE Stop: 06/15/22 08:48 Magnesium Hydroxide (Milk Of Magnesia 30 Ml Oral.Susp) 30 ml PO DAILY PRN PRN Reason: Constipation Metoprolol Tartrate (Metoprolol Tartrate 25 Mg Tablet) 25 mg PO BID [facility]; Protocol Last Admin: 06/14/22 21:07 Dose: 25 mg Mirabegron (Mirabegron 50 Mg Tab.Er.24h) 50 mg PO DAILY [facility] Morphine Sulfate (Morphine Sulfate 2 Mg/Ml Cartridge) 2 mg IVPUSH Q4H PRN; Protocol PRN Reason: Pain, Severe (Pain Scale 7-10) Last Admin: 06/15/22 00:26 Dose: 2 mg Nystatin (Nystatin Powder 15 Gm Bottle) 1 appl TOPICAL TID PRN; Protocol PRN Reason: Rash Omeprazole (Omeprazole 20 Mg Capsule.Dr) 20 mg PO DAILY@0630 [facility] Last Admin: 06/15/22 05:38 Dose: Not Given Ondansetron HCl (Ondansetron Hcl 4 Mg/2 Ml Vial) 4 mg IVPUSH Q8H PRN PRN Reason: Nausea and Vomiting Oxybutynin Chloride (Oxybutynin Chloride 5 Mg Tablet) 5 mg PO DAILY [facility] Senna (Sennosides 8.6 Mg Tablet) 8.6 mg PO DAILY [facility] Sodium Chloride (0.9 % Sodium Chloride Flush 3 Ml Syringe) 3 ml IVFLUSH QSHIFT [facility] Last Admin: 06/15/22 08:07 Dose: 3 ml Home Medications Medication Instructions Recorded Confirmed Last Taken Type acetaminophen 325 mg tablet 650 mg PO Q6H PRN Pain 06/14/22 06/14/22 Unknown History (Tylenol) baclofen 5 mg tablet 15 mg PO TID 06/14/22 06/14/22 Unknown History benztropine 0.5 mg tablet 0.5 mg PO DAILY 06/14/22 06/14/22 Unknown History bisacodyl 10 mg rectal suppository 10 mg ME DAILY PRN Constipation 06/14/22 06/14/22 Unknown History bisacodyl 5 mg tablet,delayed 10 mg PO BEDTIME PRN Constipation 06/14/22 06/14/22 Unknown History release calcium carbonate 200 mg calcium 200 mg PO DAILY 06/14/22 06/14/22 Unknown History (500 mg) chewable tablet (Calcium Antacid) duloxetine 60 mg capsule,delayed 60 mg PO DAILY 06/14/22 06/14/22 Unknown History release estradiol 0.01% (0.1 mg/gram) 1 appful vaginal MOWEFR@2100 06/14/22 06/14/22 Unknown History vaginal cream furosemide 20 mg tablet 20 mg PO DAILY 06/14/22 06/14/22 Unknown History magnesium hydroxide 400 mg/5 mL 30 ml PO DAILY PRN Constipation 06/14/22 06/14/22 Unknown History oral suspension (Milk of Magnesia) menthol 0.44 %-zinc oxide 20.6 % 1 appl topical BID 06/14/22 06/14/22 Unknown History topical ointment (Calmoseptine) menthol 5 % topical patch (Icy Hot 1 patch topical DAILY 06/14/22 06/14/22 Unknown History (menthol)) methenamine mandelate 1 gram tablet 1 g PO BID 06/14/22 06/14/22 Unknown History metoprolol tartrate 25 mg tablet 25 mg PO BID 06/14/22 06/14/22 Unknown History mirabegron 50 mg tablet,extended 50 mg PO DAILY 06/14/22 06/14/22 Unknown History release 24 hr (Myrbetriq) nystatin 100,000 unit/gram topical 1 appl topical TID PRN Rash 06/14/22 06/14/22 Unknown History powder omeprazole 20 mg capsule,delayed 20 mg PO DAILY@0630 06/14/22 06/14/22 Unknown History release oxybutynin chloride 5 mg tablet 5 mg PO DAILY 06/14/22 06/14/22 Unknown History polyethylene glycol 3350 17 gram 17 g PO Q OTHER DAY 06/14/22 06/14/22 Unknown History oral powder packet (Miralax) sennosides 8.6 mg tablet (senna) 8.6 mg PO DAILY 06/14/22 06/14/22 Unknown History Exam Exam Date and Time: June 15, 202212 Height,Weight and Vital Signs: Height 5 ft 2 in Weight 54.431 kg Last Vital Signs Temp 98.5 F 06/15/22 07:58 Pulse 70 06/15/22 07:58 Resp 18 06/15/22 07:58 BP 151/93 H 06/15/22 07:58 Pulse Ox 100 06/15/22 07:58 O2 Del Method Room Air 06/15/22 07:58 Pertinent Lab Results Pertinent Lab Results: Laboratory Tests 06/14/22 06/14/22 06/14/22 08:17 08:17 08:39 WBC 8.4 RBC 4.92 Hgb 14.6 Hct 43.9 MCV 89.2 MCH 29.7 MCHC 33.3 RDW 14.3 Plt Count 238 MPV 9.7 Immature Gran % (Auto) 0.4 Neut % (Auto) 71.9 Lymph % (Auto) 18.4 L [place] % (Auto) 5.5 Eos % (Auto) 3.2 Baso % (Auto) 0.6 Lymph # (Auto) 1.5 [place] # (Auto) 0.5 Eos # (Auto) 0.3 Baso # (Auto) 0.1 Abs Immat Gran (auto) 0.03 Absolute Neuts (auto) 6.0 Absolute Nucleated RBC 0.000 Nucleated RBC % (auto) 0.0 Sodium 140 Potassium 3.5 Chloride 106 Carbon Dioxide 25 Anion Gap 13 BUN 11 Creatinine 0.70 Estim Creat Clear Calc 52.4 Estimated GFR > 60 Random Glucose 88 Calcium 8.8 Total Bilirubin 0.5 Direct Bilirubin < 0.2 AST 10 ALT < 6 Alkaline Phosphatase 75 Total Protein 5.9 L Albumin 3.3 L Lipase 21 Urine Color Yellow Urine Appearance Turbid Urine pH 8.0 Ur Specific [place] <= 1.005 Urine Protein 30 (1+) H Urine Glucose (UA) Negative Urine Ketones Negative Urine Blood Trace H Urine Nitrite Negative Ur Leukocyte Esterase Large (3+) H Urine RBC 11-20 H Urine WBC 11-20 H Ur Squamous Epith Cells 6-10 Other Crystals Present Urine Bacteria 4+ Hyaline Casts 0-2 COVID-19 ([facility]) COVID-19 Clin Com 06/14/22 06/15/22 10:05 06:40 WBC RBC Hgb Hct MCV MCH MCHC RDW Plt Count MPV Immature Gran % (Auto) Neut % (Auto) Lymph % (Auto) [place] % (Auto) Eos % (Auto) Baso % (Auto) Lymph # (Auto) [place] # (Auto) Eos # (Auto) Baso # (Auto) Abs Immat Gran (auto) Absolute Neuts (auto) Absolute Nucleated RBC Nucleated RBC % (auto) Sodium 141 Potassium 4.0 Chloride 105 Carbon Dioxide 27 Anion Gap 13 BUN 11 Creatinine 0.70 Estim Creat Clear Calc 52.4 Estimated GFR > 60 Random Glucose 108 Calcium 9.2 Total Bilirubin Direct Bilirubin AST ALT Alkaline Phosphatase Total Protein Albumin Lipase Urine Color Urine Appearance Urine pH Ur Specific [place] Urine Protein Urine Glucose (UA) Urine Ketones Urine Blood Urine Nitrite Ur Leukocyte Esterase Urine RBC Urine WBC Ur Squamous Epith Cells Other Crystals Urine Bacteria Hyaline Casts COVID-19 ([facility]) Negative COVID-19 Clin Com See Note Airway Mallampati Class: II TM Dist: >3cm Neck ROM: Full Heart: ok Lungs: ok Assessment and Plan Assessment Anesthesia Assessment: Anesthesia Plan Discussed and Chart Reviewed Final Anesthetic Review Family History of Problems with Anesthesia: No History of Problems with Anesthesia: No NPO: Yes ASA Class: IV Final Preanesthetic Review: No Changes in Pt Med Stat, Meds/Allgs Chart Reviewed, Consent Obtained/Reviewed and Anes Risks/Benef Reviewed Patient Risk: High Procedure Risk: Low Anesthetic Plan Anesthetic Plan: GA and Agree w/ Assess. and Plan Disposition: Standard PACU
--- NOTE | 2022-06-15 10:53 | W.PM.OPN ---
Operative Note Operative Note Date of Service: 06/15/22 Narrative: PreOperative Diagnosis: Bladder stones with recurring UTI Post Operative Diagnosis: Bladder stones modifier 22, recurring UTI Procedure: Cystoscopy with laser of bladder stones prolonged, 5 x 1.5 cm stones Surgeon: Dr Rajinder Vance Anesthesia: General Indications for procedure: MS patient with suprapubic tube. Has developed bladder stones significant number presents with UTI. Antibiotics have been given for 24 hours. Plan for removal of stones from bladder Procedure: After informed consent was verified the patient was brought to the operating room and placed in a supine position. Anesthesia was administered per protocol. Patient was placed in modified dorsal lithotomy position. The patient was prepped and draped in a sterile fashion. Safety pause time-out was performed. Antibiotics being given. Cystoscopy performed using resectoscope. There were 51.5-2 cm stones within bladder. Using a holmium laser fiber 900 nm the stones were broken and the bladder was irrigated. This took a total of 90 minutes. This is 100% longer than typical. The procedure was combination of breakage of stones in irrigation to remove debris. At the completion the procedure a 22 Citizen [place] Shaver catheter was placed suprapubic. She should remain on methenamine and vitamin-C for prophylaxis for chronic infection. Pathology: [] Drains: []
--- NOTE | 2022-06-15 10:57 | MHC.SHP ---
Pre-Procedural Eval Section A Date of Service: 06/15/22 The patient is an INPATIENT: Yes Changes since office visit: No Cold of Flu in the past 2 weeks, No New Medical Problems, No Changes in Medication and No Patient answered all questions The History & Physical has been completed within 30 days and I have reviewed it.: Yes Section B Chief Complaint: UTI, bladder stones, constipation Relevant Family History (Specify if Yes): No Relevant Social History: None Present Medications: None Medical History: Significant History History of Previous Operations: Relevant previous surgery/procedure and date(s) Allergies: Allergies Allergy/AdvReac Type Severity Reaction Status Date / Time No Known Allergies Allergy Verified 06/14/22 07:32 Review of Systems Sugical H&P ROS: Negative: Constitution, Cardiovascular, Respiratory, Neurological, Psychiatric, Hem-Onc, Allergic/Immunologic, Gastrointestinal, Genitourinary, Musculoskeletal, Integumentary, Endocrine and Eyes/Ears/Nose/Throat Exam Surgical H&P Exam: Normal: HEENT, Normal: Heart, Normal: Lungs, Normal: Extremities, Normal: Abdomen, Normal: Skin and Normal: Neurological Plan Diagnosis/Plan: Unchanged (Cystoscopy with bladder stone removal) I have reviewed the history and physical and performed a pertinent physical examination on my patient. No changes have occurred unless specified. Time Spent With Patient Time: Total time managing care of this patient today ____ minutes.
[2022-06-15] MEDS: Metoprolol Tartrate 25 MG TABLET PO ×2 (12:16→20:06)
[2022-06-15] MEDS: DULoxetine HCl 60 MG CAPSULE.DR PO (12:18)
[2022-06-15] MEDS: amLODIPine Besylate 2.5 MG TABLET PO (12:18)
[2022-06-15] MEDS: Benztropine Mesylate 0.5 MG TABLET PO (12:18)
[2022-06-15] MEDS: Mirabegron 50 MG TAB.ER.24H PO (12:19)
[2022-06-15] MEDS: Sennosides 8.6 MG TABLET PO (12:19)
[2022-06-15] MEDS: oxyBUTYnin chloride 5 MG TABLET PO (12:19)
[2022-06-15] MEDS: cefTRIAXone sodium 1 GM in 0.9 % Sodium Chloride 50 ML IV (12:24)
[2022-06-15] MEDS: Acetaminophen 325 MG TABLET 650 MG PO (12:29)
[2022-06-15] MEDS: Baclofen 10 MG TABLET 15 MG PO ×2 (15:16→20:05)
--- NOTE | 2022-06-15 16:21 | MHC.CM.PN ---
CM CONTACTED PT'S ERICK AT 4:05PM TO NUMBER ON FILE D/T PT'S MENTAL STATUS, ERICK VERIFIES PT IS IN LTC AT [facility], IS TOTALLY DEPENDENT W/CARE AND STAFF GETS HER UP IN WC, ERICK REPORTS PLAN WILL BE TO RETURN TO [facility] WHEN MEDICALLY CLEAREDF FOR D/C. PCP IS JUAN RAMON RIOS, ERICK REPORTS COVID VAX X3 AND HCP IS QUE CAMPUZANO, NUMBER ON FILE, CM HAS REQUESTED HCP FROM [facility]
--- NOTE | 2022-06-15 16:33 | HO.PM.IMPN ---
Subjective Subjective Date of Service: 06/15/22 Review of Systems Follow up blocked suprapubic cathether, staghorn stone no pain or discomfort Physical Exam Vital Signs: Vital Signs: Last Vital Signs Temp 96.8 F 06/15/22 15:31 Pulse 68 06/15/22 15:31 Resp 13 06/15/22 15:31 BP 172/78 H 06/15/22 15:31 Pulse Ox 96 06/15/22 15:31 O2 Del Method Room Air 06/15/22 15:31 BMI result Body Mass Index 21.9 Appearing in no acute distress lung sounds are clear to auscultation heart regular rate rhythm, clear S1, S2 positive bowel sounds, abdomen is soft, nontender neuro patient is alert x3, no focal deficits Objective Data Active Medications Acetaminophen (Acetaminophen 325 Mg Tablet) 650 mg PO Q6H PRN PRN Reason: Pain, Mild (Pain Scale 1-3) Albuterol/Ipratropium (Albuterol/Iprat 2.5/0.5mg 3 Ml Ampul.Neb) 3 ml INHALE RQ4H WHILE AWAKE [facility] Last Admin: 06/15/22 15:32 Dose: Not Given Documented By: MARIUM Non-Admin Reason: Patient Refused Amlodipine Besylate (Amlodipine Besylate 2.5 Mg Tablet) 2.5 mg PO DAILY [facility]; Protocol Last Admin: 06/15/22 12:18 Dose: 2.5 mg Documented By: MELISSA Baclofen (Baclofen 10 Mg Tablet) 15 mg PO TID [facility] Last Admin: 06/15/22 15:16 Dose: 15 mg Documented By: MELISSA Benztropine Mesylate (Benztropine Mesylate 0.5 Mg Tablet) 0.5 mg PO DAILY [facility] Last Admin: 06/15/22 12:18 Dose: 0.5 mg Documented By: MELISSA Bisacodyl (Bisacodyl 10 Mg Supp.Rect) 10 mg MD DAILY PRN PRN Reason: Constipation Docusate Sodium (Docusate Sodium 100 Mg Capsule) 100 mg PO BEDTIME [facility] Last Admin: 06/14/22 21:06 Dose: 100 mg Documented By: EDWAR Duloxetine HCl (Duloxetine Hcl 60 Mg Capsule.) 60 mg PO DAILY [facility] Last Admin: 06/15/22 12:18 Dose: 60 mg Documented By: MELISSA Fentanyl (Fentanyl Citrate/Pf 100 Mcg/2 Ml Vial) 25 mcg IVPUSH Q5M PRN; Protocol PRN Reason: Pain, Moderate (Pain Scale 4-6 Ceftriaxone Sodium 1 gm/ (Sodium Chloride) 50 mls @ 100 mls/hr IV Q24H [facility] Last Infusion: 06/15/22 13:00 Dose: 0 mls/hr Documented By: MELISSA Magnesium Hydroxide (Milk Of Magnesia 30 Ml Oral.Susp) 30 ml PO DAILY PRN PRN Reason: Constipation Metoprolol Tartrate (Metoprolol Tartrate 25 Mg Tablet) 25 mg PO BID [facility]; Protocol Last Admin: 06/15/22 12:16 Dose: 25 mg Documented By: MELISSA Mirabegron (Mirabegron 50 Mg Tab.Er.24h) 50 mg PO DAILY [facility] Last Admin: 06/15/22 12:19 Dose: 50 mg Documented By: MELISSA Morphine Sulfate (Morphine Sulfate 2 Mg/Ml Cartridge) 2 mg IVPUSH Q4H PRN; Protocol PRN Reason: Pain, Severe (Pain Scale 7-10) Last Admin: 06/15/22 00:26 Dose: 2 mg Documented By: EDWAR Nystatin (Nystatin Powder 15 Gm Bottle) 1 appl TOPICAL TID PRN; Protocol PRN Reason: Rash Omeprazole (Omeprazole 20 Mg Capsule.Dr) 20 mg PO DAILY@0630 [facility] Last Admin: 06/15/22 05:38 Dose: Not Given Documented By: EDWAR Non-Admin Reason: NPO Ondansetron HCl (Ondansetron Hcl 4 Mg/2 Ml Vial) 4 mg IVPUSH Q8H PRN PRN Reason: Nausea and Vomiting Ondansetron HCl (Ondansetron Hcl 4 Mg/2 Ml Vial) 4 mg IVPUSH ONCE PRN PRN Reason: Nausea and Vomiting Oxybutynin Chloride (Oxybutynin Chloride 5 Mg Tablet) 5 mg PO DAILY [facility] Last Admin: 06/15/22 12:19 Dose: 5 mg Documented By: MELISSA Senna (Sennosides 8.6 Mg Tablet) 8.6 mg PO DAILY [facility] Last Admin: 06/15/22 12:19 Dose: 8.6 mg Documented By: MELISSA Sodium Chloride (0.9 % Sodium Chloride Flush 3 Ml Syringe) [facility] Last Admin: 06/15/22 15:16 Dose: 3 ml Documented By: MELISSA Labs 06/14/22 08:17 06/15/22 06:40 Labs: Laboratory Results - last 24 hr 06/15/22 06:40 Anion Gap 13 Estim Creat Clear Calc 52.4 Estimated GFR > 60 Random Glucose 108 Calcium 9.2 Microbiology Microbiology Results: Microbiology 06/14/22 Unknown Urine Culture - Final Urine clean catch - Urine [place] top Assessment and Plan (1) Bladder stones: Status: Acute Plan 76-year-old female with history of MS, neuromuscular dysfunction of the bladder status post suprapubic catheter placement, hypertension, depression, resident of [facility] who was sent to the emergency department for evaluation blockage of suprapubic catheter found to have bladder stones, UTI Acute UTI r/t suprapubic catheter blockage/bladder stones no sepsis Continue IV ceftriaxone follow urine cultures Bladder stones/catheter obstruction s/p cystoscopy with laser of bladder stones Re-placement of suprapubic catheter constipation s/p fecal disimpaction in ED bowel regimen MS continue baclofen Mood continue duloxetine HTN continue metoprolol hold lasix bladder dysfunction continue myrbetriq, oxybutynin Stage 2 pressure ulcer, left buttock present on admission dvt ppx - mechanical devices, due to plan for procedure in am code status - FULL CODE.? Attending - Dr. Barrios Disposition plan to return to [facility] when medically clear patient will likely require 2 midnight stay in the hospital for management of UTI, bladder stones requiring surgical intervention, constipation Time Spent With Patient Time: Total time managing care of this patient today ____ minutes. Quality Stroke Does the patient have a stroke diagnosis?: No VTE Prior VTE?: No VTE Risk Level:: Medical - moderate - high VTE Device Contraindication: N/A - Device Ordered VTE Drug Contraindication: Treatment Not Indicated
[2022-06-15] MEDS: Docusate Sodium 100 MG CAPSULE PO (20:07)
[2022-06-16] MEDS: Omeprazole 20 MG CAPSULE.DR PO (06:16)
[2022-06-16] MEDS: Albuterol/Iprat 2.5/0.5MG 3 ML AMPUL.NEB INHALE (08:51)
[2022-06-16 08:54] VITALS: PULSE 82; RESP 20; O2SAT 97
[2022-06-16] MEDS: amLODIPine Besylate 2.5 MG TABLET PO (09:03)
[2022-06-16] MEDS: Mirabegron 50 MG TAB.ER.24H PO (09:03)
[2022-06-16] MEDS: Metoprolol Tartrate 25 MG TABLET PO (09:03)
[2022-06-16] MEDS: Baclofen 10 MG TABLET 15 MG PO (09:03)
[2022-06-16] MEDS: Sennosides 8.6 MG TABLET PO (09:03)
[2022-06-16] MEDS: oxyBUTYnin chloride 5 MG TABLET PO (09:03)
[2022-06-16] MEDS: DULoxetine HCl 60 MG CAPSULE.DR PO (09:03)
[2022-06-16] MEDS: Benztropine Mesylate 0.5 MG TABLET PO (09:03)
[2022-06-16] MEDS: 0.9 % Sodium Chloride Flush 3 ML SYRINGE IVFLUSH (09:03)
[2022-06-16 09:04] VITALS: BP 171/70; PULSE 74; RESP 18; TEMP 36.8; O2SAT 96
--- NOTE | 2022-06-16 11:35 | PM.DS ---
DS: Providers Provider Date of Service: 06/16/22 Date of admission: 06/14/22 12:08 Primary care physician: Devaughn Byers MD Consults: 06/14/22 12:08 Consult to Urology Routine Consulting Provider: Rajinder Vance Reason for consultation: bladder stones, UTI, catheter blocked Has provider been notified: No DS: Diagnosis Discharge Diagnosis (1) Bladder stones: Status: Acute DS: Summary Hospital Course Hospital Course: This is a 76 year old resident of [facility] with history of MS, neuromuscular bladder dysfunction status post suprapubic catheter placement who was sent to the emergency department for evaluation of nonfunctioning catheter. ? Patient reports lower abdominal discomfort.? She denies any associated fever or chills.? In the emergency department she underwent CT scan of the abdomen which showed large staghorn calculus in the left renal pelvis extending into the left ureter with mild left hydronephrosis, multiple large stones within the urinary bladder and circumferential wall thickening of the urinary bladder due to chronic outflow obstruction and/or cystitis.? CT scan also has showed evidence of constipation and probable fecal impaction.? She underwent manual disimpaction in the emergency department.? Urology was consulted for obstruction of suprapubic catheter and bladder stones.? urinalysis was consistent with urinary tract infection and she was started on IV ceftriaxone. Acute UTI r/t suprapubic catheter blockage/bladder stones no sepsis treated with IV ceftriaxone, continue ceftin mixed yeni on cx Bladder stones/catheter obstruction s/p cystoscopy with laser of bladder stones Re-placement of suprapubic catheter constipation s/p fecal disimpaction in ED bowel regimen MS continue baclofen Mood continue duloxetine HTN continue home medications bladder dysfunction continue myrbetriq, oxybutynin Stage 2 pressure ulcer, left buttock? present on admission admit under the Medicare [id number] waiver Time Spent with Patient Time attestation: Total time managing care of this patient today ____ minutes. Discharge coordination time: Greater than 30 minutes Quality: Safe Use of Opioids Does Pt have an Active Cancer Diagnosis on the Problem List?: No Quality: Stroke Does the patient have a stroke diagnosis?: No Physical Exam Vital Signs: Vital Signs: Last Vital Signs Temp 98.3 F 06/16/22 09:04 Pulse 74 06/16/22 09:04 Resp 18 06/16/22 09:04 BP 171/70 H 04/11/23 09:04 Pulse Ox 96 06/16/22 09:04 O2 Del Method Room Air 06/16/22 09:04 BMI result Body Mass Index 21.9 DS: Data Data Completed and Pending Pending studies at discharge: Pending at discharge 06/15/22 10:48 Surgical [PTH] Routine Discharge Plan Discharge Anticipated Discharge Date/Time: 06/16/22 10:54 Patient Disposition: Xfer [facility] Discharge Diagnosis: Fecal impaction UTI Staghorn calculi Referrals: Martin Hernandez Sharon [Outside] - 1 Week Devaughn Byers MD [Primary Care Provider] - 1 Week Discharge Medications: New cefuroxime axetil 500 mg tablet 500 mg PO BID Qty: 8 0RF Continued acetaminophen [Tylenol] 325 mg Tablet 650 mg PO Q6H PRN (Reason: Pain) benztropine 0.5 mg Tablet 0.5 mg PO DAILY bisacodyl 10 mg Suppository 10 mg AL DAILY PRN (Reason: Constipation) calcium carbonate [Calcium Antacid] 200 mg calcium (500 mg) Tablet,Chewable 200 mg PO DAILY bisacodyl 5 mg Tablet,Delayed Release (Dr/Ec) 10 mg PO BEDTIME PRN (Reason: Constipation) duloxetine 60 mg Capsule,Delayed Release(Dr/Ec) 60 mg PO DAILY menthol-zinc oxide [Calmoseptine] 0.44-20.6 % Ointment 1 appl TOPICAL BID Rx Instructions: apply to coccyx/buttocks baclofen 5 mg Tablet 15 mg PO TID sennosides [senna] 8.6 mg Tablet 8.6 mg PO DAILY polyethylene glycol 3350 [Miralax] 17 gram Powder In Packet 17 g PO Q OTHER DAY magnesium hydroxide [Milk of Magnesia] 400 mg/5 mL Suspension 30 ml PO DAILY PRN (Reason: Constipation) methenamine mandelate 1 gram Tablet 1 g PO BID Rx Instructions: administer after meals and at bedtime omeprazole 20 mg Capsule,Delayed Release(Dr/Ec) 20 mg PO DAILY@0630 furosemide 20 mg Tablet 20 mg PO DAILY nystatin 100,000 unit/gram Powder 1 appl TOPICAL TID PRN (Reason: Rash) Rx Instructions: apply to affected rash areas estradiol 0.01 % (0.1 mg/gram) Cream 1 appful VAGINAL MOWEFR@2100 Rx Instructions: for 14 days oxybutynin chloride 5 mg Tablet 5 mg PO DAILY Icy Hot (menthol) 5 % Adhesive Patch,Medicated 1 patch TOPICAL DAILY Rx Instructions: apply to bilateral knees metoprolol tartrate 25 mg Tablet 25 mg PO BID Myrbetriq 50 mg Tablet Extended Release 24 Hr 50 mg PO DAILY Discharge Orders: Discharge Order (Routine); Ordered 06/16/22 Ordered By: Felicitas Duenas Diet: Advance to usual diet Activity on Discharge: As tolerated Stand Alone Forms: Patient Portal Discharge page Care Plan Goals: maintain placement of suprapubic catheter Health Concerns: Fecal impaction UTI Staghorn calculi Plan of Treatment: Follow-up with primary care provider as needed Take all medications as prescribed Assessment: See discharge summary
[2022-06-16] MEDS: cefTRIAXone sodium 1 GM in 0.9 % Sodium Chloride 50 ML IV (11:47)
--- NOTE | 2022-06-16 12:55 | PC.NURSE ---
Martin buchanan. Report given to Mckayla. Denies further questions.
--- NOTE | 2022-06-16 13:05 | HO.POSTANES ---
Post Anesthesia Evaluation Post Anesthesia Evaluation Vital Signs: Vital Signs Temp Pulse Resp BP Pulse Ox O2 Del Method 06/16/22 09:04 98.3 F 74 18 171/70 H 96 Room Air 06/16/22 08:54 82 20 Anesthesia: General Mental Status: Awake Pain Control: Satisfactory Nausea/Vomiting: None Hydration: Adequate Anesthesia-Related Issues: No Anes. Related Issues
--- NOTE | 2022-06-16 13:33 | MHC.CM.PN ---
Pt medically cleared for D/C back to [facility] today. Lilian/PARMJIT booked for transport. Pt updated and pts John notified via telephone. D/C summary and covid test sent to [facility] via [facility].
== END 2022-06-16 14:45 | DRG 699 ==
LOC: HO.ED 10:20 → HO.EDOVER 12:22 → HO.IMC 12:49
PROVIDERS: Physician Assistant; Urology; Admitting Provider Physician Assistant Medical; Emergency Provider Emergency Medicine; PCP Family Medicine; Visit Provider Nurse Practitioner Acute Care
PROC: 0TJB8ZZ Inspection of Bladder, Via Natural or Artificial Opening Endoscopic (ICD-10-PCS; CPT 52000; principal; 2022-06-15 07:30)
DX: T83.098A Other mechanical complication of other urinary catheter, initial encounter (principal); N39.0 Urinary tract infection, site not specified; K56.41 Fecal impaction; F32.A Depression, unspecified; Y73.2 Prosthetic and other implants, materials and accessory gastroenterology and urology devices associated with adverse incidents; N21.0 Calculus in bladder; G35 Multiple sclerosis; L89.322 Pressure ulcer of left buttock, stage 2; N31.9 Neuromuscular dysfunction of bladder, unspecified; L89.152 Pressure ulcer of sacral region, stage 2; Z20.822 Contact with and (suspected) exposure to COVID-19; Z79.899 Other long term (current) drug therapy
CPT/HCPCS: 36415; 71045; 74176; 80048; 80076; 81001; 83690; 85025; 87086; 87635; 88300; 99285; J0696; J1956; J2270; J3010

== ENCOUNTER 2022-09-10 17:17 | Emergency (ER) | payer MEDICARE, SELFPAY ==
[2022-09-10 17:57] VITALS: BP 142/97; BP 156/82; PULSE 75; RESP 16; TEMP 36.8; O2SAT 93; O2SAT 98; BMI 22.7
[2022-09-10 18:12] VITALS: BP 156/78; PULSE 72; RESP 22; O2SAT 95
--- NOTE | 2022-09-10 19:57 | ED.FEMALEGU ---
HPI - Female Genitourinary General Chief complaint: Urogenital-Female Stated complaint: CATHETER ISSUE Time Seen by Provider: 09/10/22 17:36 Source: patient and EMS Mode of arrival: EMS History of Present Illness HPI Narrative: 77-year-old female with MS arrives with complaints of lower suprapubic discomfort and states that she feels it might be her urinary catheter. She denies any fever or chills or nausea or vomiting. Related Data Home Medications Medication Instructions Recorded Confirmed acetaminophen 325 mg tablet 650 mg PO Q6H PRN Pain 06/14/22 06/14/22 (Tylenol) baclofen 5 mg tablet 15 mg PO TID 06/14/22 06/14/22 benztropine 0.5 mg tablet 0.5 mg PO DAILY 06/14/22 06/14/22 bisacodyl 10 mg rectal suppository 10 mg [place] DAILY PRN Constipation 06/14/22 06/14/22 bisacodyl 5 mg tablet,delayed 10 mg PO BEDTIME PRN Constipation 06/14/22 06/14/22 release calcium carbonate 200 mg calcium 200 mg PO DAILY 06/14/22 06/14/22 (500 mg) chewable tablet (Calcium Antacid) duloxetine 60 mg capsule,delayed 60 mg PO DAILY 06/14/22 06/14/22 release estradiol 0.01% (0.1 mg/gram) 1 appful vaginal MOWEFR@2100 06/14/22 06/14/22 vaginal cream furosemide 20 mg tablet 20 mg PO DAILY 06/14/22 06/14/22 magnesium hydroxide 400 mg/5 mL 30 ml PO DAILY PRN Constipation 06/14/22 06/14/22 oral suspension (Milk of Magnesia) menthol 0.44 %-zinc oxide 20.6 % 1 appl topical BID 06/14/22 06/14/22 topical ointment (Calmoseptine) menthol 5 % topical patch (Icy Hot 1 patch topical DAILY 06/14/22 06/14/22 (menthol)) methenamine mandelate 1 gram tablet 1 g PO BID 06/14/22 06/14/22 metoprolol tartrate 25 mg tablet 25 mg PO BID 06/14/22 06/14/22 mirabegron 50 mg tablet,extended 50 mg PO DAILY 06/14/22 06/14/22 release 24 hr (Myrbetriq) nystatin 100,000 unit/gram topical 1 appl topical TID PRN Rash 06/14/22 06/14/22 powder omeprazole 20 mg capsule,delayed 20 mg PO DAILY@0630 06/14/22 06/14/22 release oxybutynin chloride 5 mg tablet 5 mg PO DAILY 06/14/22 06/14/22 polyethylene glycol 3350 17 gram 17 g PO Q OTHER DAY 06/14/22 06/14/22 oral powder packet (Miralax) sennosides 8.6 mg tablet (senna) 8.6 mg PO DAILY 06/14/22 06/14/22 Previous Rx's Medication Instructions Recorded cefuroxime axetil 500 mg tablet 500 mg PO BID #8 tabs 06/16/22 cefdinir 300 mg capsule 300 mg PO BID 7 days #14 caps 09/10/22 Allergies Allergy/AdvReac Type Severity Reaction Status Date / Time No Known Allergies Allergy Verified 06/14/22 07:32 Review of Systems Review of Systems: Pertinent positives and negatives as stated in [facility] Past Medical History Source: nursing notes reviewed Medical History Depression HTN (hypertension) Multiple sclerosis Neuromuscular dysfunction of bladder Suprapubic catheter Social History Social History Housing: Intermediate Alcohol intake: current Alcohol intake frequency: holidays/special occasions only Alcohol type: wine Patient Tobacco Use Status: Never used Tobacco Smoked in Last 30 Days: No Use of substances other than those prescribed or required for medical reasons: No Advance Directives: Yes Advance Directives Information Provided: No Advance Directives on File: No service: No Current occupational status: unemployed Physical Exam Vital Signs: Vital Signs: Last Vital Signs Temp 98.2 F 09/10/22 20:38 Pulse 71 09/10/22 20:38 Resp 18 09/10/22 20:38 BP 150/86 H 09/10/22 20:38 Pulse Ox 99 09/10/22 20:38 O2 Del Method Room Air 09/10/22 20:38 BMI result Body Mass Index 22.7 VITAL SIGNS: Reviewed. GENERAL: Cachectic, elderly, in no acute distress. HEAD: Normocephalic/atraumatic EYES: PERRLA, EOMI EARS: Ext canals without abnormality NOSE: Nares patent bilateral OROPHARYNX: no oral lesions noted, posterior pharynx clear, dry mucosa NECK: Supple, no adenopathy LUNGS: Normal breath sounds. No adventitious sounds or accessory muscle use. SpO2<99> CARDIOVASCULAR: Regular rate and rhythm without noted murmurs, no JVD or lower extremity edema. ABDOMEN: Soft, mild suprapubic discomfort, non-distended with bowel sounds. MUSCULOSKELETAL: No tenderness, deformities, or effusions noted on gross inspection. EXTREMITIES: No cyanosis, clubbing or edema. SKIN: Inspection of the skin reveals no rashes NEUROLOGIC: Alert and or contractions of all 4 limbs at baseline Medications Administered Discontinued Medications Generic Name Dose Route Start Last Admin Trade Name Freq PRN Reason Stop Dose Admin Amoxicillin/Clavulanate Potassium 875 mg 09/10/22 19:57 09/10/22 20:07 Amoxicillin/Potassium Clav 875 Mg Tablet PO 09/10/22 19:58 875 mg ONCE ONE Administration Medical Decision Making Medical Decision Making [facility] Narrative: 77-year-old female with history and clinical presentation most suspicious for urinary tract infection, bladder scan did demonstrate elevated urinary presents although there was urine present within the collection bag. The urine appears to be quite cloudy with a foul odor and on review of the results is highly indicative of a urinary tract infection. It is possible that this is a colonization but given patient's discomfort in the suprapubic area will proceed with changing with Shaver catheter as well as treating with initial Augmentin and then discharging on a course of cefdinir with instructions that patient's providers should follow-up on that urine culture. She is otherwise discharged back to the facility in stable condition. Differential Diagnosis Please see the discussion above Lab Data Please see the discussion above Labs: Lab Results 09/10/22 Range/Units 18:14 Urine Color Dark Yellow Urine Appearance Turbid Urine pH 7.5 (5.0-9.0) Ur Specific Reading 1.025 (1.005-1.025) Urine Protein 300 (3+) H (Neg-Trace) mg/dL Urine Glucose (UA) Negative (Negative) mg/dL Urine Ketones Negative (Negative) mg/dL Urine Blood Moderate (2+) H (Negative) Urine Nitrite Negative (Negative) Ur Leukocyte Esterase Large (3+) H (Negative) Urine RBC >20 H (0-2) /HPF Urine WBC >50 H (0-5) /HPF Ur Squamous Epith Cells 11-20 (0-2) /HPF Urine Bacteria 4+ (None Seen) Hyaline Casts 3-5 (0-2) /LPF Discharge Plan Discharge Clinical Impression: Urinary tract infection Patient Disposition: er [facility] Instructions: Catheter-associated Urinary Tract Infection (ED) Additional Instructions: 1. Resume all home medications as prescribed. 2. Complete the entire course of antibiotics as ordered. 3. Follow-up with primary care provider and follow-up on the urine culture to decide whether not to discontinue antibiotics. Return to the ER for any worsening symptoms. Prescriptions: New cefdinir 300 mg capsule 300 mg PO BID 7 Days Qty: 14 0RF No Action acetaminophen [Tylenol] 325 mg Tablet 650 mg PO Q6H PRN (Reason: Pain) benztropine 0.5 mg Tablet 0.5 mg PO DAILY bisacodyl 10 mg Suppository 10 mg [place] DAILY PRN (Reason: Constipation) calcium carbonate [Calcium Antacid] 200 mg calcium (500 mg) Tablet,Chewable 200 mg PO DAILY bisacodyl 5 mg Tablet,Delayed Release (Dr/Ec) 10 mg PO BEDTIME PRN (Reason: Constipation) duloxetine 60 mg Capsule,Delayed Release(Dr/Ec) 60 mg PO DAILY menthol-zinc oxide [Calmoseptine] 0.44-20.6 % Ointment 1 appl TOPICAL BID Rx Instructions: apply to coccyx/buttocks baclofen 5 mg Tablet 15 mg PO TID sennosides [senna] 8.6 mg Tablet 8.6 mg PO DAILY polyethylene glycol 3350 [Miralax] 17 gram Powder In Packet 17 g PO Q OTHER DAY magnesium hydroxide [Milk of Magnesia] 400 mg/5 mL Suspension 30 ml PO DAILY PRN (Reason: Constipation) methenamine mandelate 1 gram Tablet 1 g PO BID Rx Instructions: administer after meals and at bedtime omeprazole 20 mg Capsule,Delayed Release(Dr/Ec) 20 mg PO DAILY@0630 furosemide 20 mg Tablet 20 mg PO DAILY nystatin 100,000 unit/gram Powder 1 appl TOPICAL TID PRN (Reason: Rash) Rx Instructions: apply to affected rash areas estradiol 0.01 % (0.1 mg/gram) Cream 1 appful VAGINAL MOWEFR@2100 Rx Instructions: for 14 days oxybutynin chloride 5 mg Tablet 5 mg PO DAILY Icy Hot (menthol) 5 % Adhesive Patch,Medicated 1 patch TOPICAL DAILY Rx Instructions: apply to bilateral knees metoprolol tartrate 25 mg Tablet 25 mg PO BID Myrbetriq 50 mg Tablet Extended Release 24 Hr 50 mg PO DAILY cefuroxime axetil 500 mg tablet 500 mg PO BID Qty: 8 0RF
[2022-09-10 20:38] VITALS: BP 150/86; PULSE 71; RESP 18; TEMP 36.8; O2SAT 99
--- NOTE | 2022-09-10 20:46 | PC.NURSE ---
This gag writer assumed care of this Pt at 1900. Pt A&Ox3, forgetful about date, Pt denies any pain, states I was brought here for a lot of discomfort to uterus . Pt has suprapubic cath, intact, with leg bag in place. New quinn bag placed. Pt placed on bedpan per request, reddened buttocks with barrier cream applied, skin dry and intact.
--- NOTE | 2022-09-10 21:38 | MHC.EDTECH ---
Call out to [facility] @2133 to book BLS transport back to [facility] @ [place] ETA of 2199
--- NOTE | 2022-09-10 22:13 | PC.NURSE ---
Nurse to nurse report called to [facility] Kusum chavez LPN. Pt will be transported via ambulance, Pt aware of plan.
== END 2022-09-10 22:16 | disposition skilled nursing facility (03) ==
PROVIDERS: Emergency Provider Student in an Organized Health Care Education/Training Program
DX: N39.0 Urinary tract infection, site not specified (principal); I10 Essential (primary) hypertension; G35 Multiple sclerosis; Z79.899 Other long term (current) drug therapy
CPT/HCPCS: 51798; 81001; 87086; 99283; 99285

== ENCOUNTER 2022-10-07 19:19 | Emergency (ER) | payer MEDICARE, SELFPAY ==
[2022-10-07 19:30] VITALS: BP 136/69; BP 161/74; PULSE 63; PULSE 87; RESP 16; TEMP 36.6; O2SAT 96; BMI 18.0
--- NOTE | 2022-10-07 19:47 | PC.NURSE ---
Patient presenting with clogged suprapubic catheter, per report patient had 1600ml in her bladder. When bladder scanned here patient has 7ml noted in her bladder. Suprapubic in place but noted that urine is leaking around the area.
[2022-10-07 20:46] VITALS: BP 152/78; PULSE 68; RESP 16; TEMP 36.5; O2SAT 95
[2022-10-07 21:06] LABS: Hematocrit 41.6 % (37.0-47.0); Hemoglobin 13.7 g/dl (12.0-16.0); Mean Corpuscular HGB Conc 32.9 g/dl (31.0-35.0); Mean Corpuscular Hemoglobin 29.3 pg (27.0-33.0); Mean Corpuscular Volume 88.9 fL (80.0-98.0); Mean Platelet Volume 9.8 fL (9.4-12.3); Platelet Count 244 X10*3/uL (160-400); Red Blood Count 4.68 X10*6/uL (4.20-5.50); Red Cell Distribution Width 14.8 % (11.0-16.0); White Blood Count 9.2 X10*3/uL (4.8-10.8)
[2022-10-07 21:14] LABS: Alanine Aminotransferase 8 U/L (0-31); Albumin Level 3.2 g/dL (3.5-5.0); Alkaline Phosphatase 63 U/L (39-117); Anion Gap 15 (12-20); Aspartate Amino Transferase 12 U/L (5-31); Bilirubin Total 0.3 mg/dL (0.0-1.0); Blood Urea Nitrogen 28 mg/dL (9-16); Calcium 9.1 mg/dL (8.4-10.2); Carbon Dioxide 22 mmol/L (22-29); Chloride 107 mmol/L (96-108); Creatinine Clr Calc Pharmacy 47.9; Estimated Glomerular Filt Rate > 60; Glucose Random 94 mg/dL (60-115); Potassium 3.2 mmol/L (3.3-5.1); Sodium 141 mmol/L (135-145); Total Protein 6.1 g/dL (6.5-8.0)
--- NOTE | 2022-10-07 21:29 | ED.GENADULT ---
HPI - General Adult General Chief complaint: General Medical Stated complaint: CATHETER ISSUE Time Seen by Provider: 10/07/22 20:22 Source: patient Mode of arrival: EMS Limitations: no limitations History of Present Illness HPI narrative: Patient history of multiple sclerosis neurogenic bladder with suprapubic catheter nurse could not flush the catheter senior care no other active complaints no fever noticed previous urine culture showed chr colonization Related Data Home Medications Medication Instructions Recorded Confirmed acetaminophen 325 mg tablet 650 mg PO Q6H PRN Pain 06/14/22 06/14/22 (Tylenol) baclofen 5 mg tablet 15 mg PO TID 06/14/22 06/14/22 benztropine 0.5 mg tablet 0.5 mg PO DAILY 06/14/22 06/14/22 bisacodyl 10 mg rectal suppository 10 mg SC DAILY PRN Constipation 06/14/22 06/14/22 bisacodyl 5 mg tablet,delayed 10 mg PO BEDTIME PRN Constipation 06/14/22 06/14/22 release calcium carbonate 200 mg calcium 200 mg PO DAILY 06/14/22 06/14/22 (500 mg) chewable tablet (Calcium Antacid) duloxetine 60 mg capsule,delayed 60 mg PO DAILY 06/14/22 06/14/22 release estradiol 0.01% (0.1 mg/gram) 1 appful vaginal MOWEFR@2100 06/14/22 06/14/22 vaginal cream furosemide 20 mg tablet 20 mg PO DAILY 06/14/22 06/14/22 magnesium hydroxide 400 mg/5 mL 30 ml PO DAILY PRN Constipation 06/14/22 06/14/22 oral suspension (Milk of Magnesia) menthol 0.44 %-zinc oxide 20.6 % 1 appl topical BID 06/14/22 06/14/22 topical ointment (Calmoseptine) menthol 5 % topical patch (Icy Hot 1 patch topical DAILY 06/14/22 06/14/22 (menthol)) methenamine mandelate 1 gram tablet 1 g PO BID 06/14/22 06/14/22 metoprolol tartrate 25 mg tablet 25 mg PO BID 06/14/22 06/14/22 mirabegron 50 mg tablet,extended 50 mg PO DAILY 06/14/22 06/14/22 release 24 hr (Myrbetriq) nystatin 100,000 unit/gram topical 1 appl topical TID PRN Rash 06/14/22 06/14/22 powder omeprazole 20 mg capsule,delayed 20 mg PO DAILY@0630 06/14/22 06/14/22 release oxybutynin chloride 5 mg tablet 5 mg PO DAILY 06/14/22 06/14/22 polyethylene glycol 3350 17 gram 17 g PO Q OTHER DAY 06/14/22 06/14/22 oral powder packet (Miralax) sennosides 8.6 mg tablet (senna) 8.6 mg PO DAILY 06/14/22 06/14/22 Previous Rx's Medication Instructions Recorded cefuroxime axetil 500 mg tablet 500 mg PO BID #8 tabs 06/16/22 cefdinir 300 mg capsule 300 mg PO BID 7 days #14 caps 09/10/22 Allergies Allergy/AdvReac Type Severity Reaction Status Date / Time No Known Allergies Allergy Verified 06/14/22 07:32 Review of Systems Review of Systems: Yes all other systems are reviewed and are negative [facility] Past Medical History Medical History Depression HTN (hypertension) Multiple sclerosis Neuromuscular dysfunction of bladder Suprapubic catheter Social History Social History Housing: Group Home Alcohol intake: former Patient Tobacco Use Status: Never used Tobacco Smoked in Last 30 Days: No Use of substances other than those prescribed or required for medical reasons: No Advance Directives: No Advance Directives Information Provided: No service: No Current occupational status: unemployed Physical Exam ED Vital Signs: Vital Signs - 24 hr 10/07/22 19:30 10/07/22 20:46 10/07/22 22:28 Temperature 98 F 97.7 F 98.1 F Pulse Rate 87 68 79 Respiratory Rate 16 16 17 Blood Pressure 161/74 H 152/78 H 145/75 H Pulse Oximetry 96 95 95 Oxygen Delivery Method Room Air Room Air Room Air 10/07/22 23:55 Temperature 98.1 F Pulse Rate 74 Respiratory Rate 22 H Blood Pressure 167/82 H Pulse Oximetry 95 Oxygen Delivery Method Room Air BMI result Body Mass Index 18.0 Appearance: Alert. And awake emaciated patient with contractures Eyes: PERRLA, No Nystagmus ENT: Pharynx normal. Oral Mucosa moist Neck: Normal inspection. Neck supple. CVS: Normal heart rate and rhythm. Pulses normal. Respiratory: No respiratory distress. Equal air entry bilateral, no wheezing/rales/rhonchi Abdomen: Soft and nontender. Bowel sounds are present, no mass palpable, suprapubic catheter in place Skin: Skin warm and dry. Normal skin color. Normal skin turgor. Extremities: No lower extremity edema. No calf tendernessNo motor deficit. No sensory deficit.No cerebellar signs , cranial nerves II-XII intact Procedures Catheter Insertion (Urinary) Date of insertion: 10/07/22 Time of insertion: 22:30 Reason for placing: Yes Reason for placing indwelling catheter: Urinary obstruction Bladder scan/ultrasound used before catheterization: No Antiseptic solution prep: Povidone-Iodine Topical anesthesia used: No Catheter type/location: Suprapubic Size (Kittitian): 22 Catheter balloon size (mL): 30 Catheter balloon amount: 25 Results: successfully catheterized-immediate flow Medical Decision Making Medical Decision Making [facility] Narrative: Suprapubic catheter was replaced with 22 Kittitian Shaver catheter patient got good urine output bladder scan showed 0 urine no leakage of urine UA showed chronic colonization of bacteria patient back to senior care Lab Data [facility] Lab Attestation statement: I reviewed the patient's lab results. 10/07/22 20:53 10/07/22 20:53 Labs: Lab Results 10/07/22 10/07/22 10/07/22 Range/Units 20:53 20:53 23:53 WBC 9.2 (4.8-10.8) X10*3/uL RBC 4.68 (4.20-5.50) X10*6/uL Hgb 13.7 (12.0-16.0) g/dl Hct 41.6 (37.0-47.0) % MCV 88.9 (80.0-98.0) fL MCH 29.3 (27.0-33.0) pg MCHC 32.9 (31.0-35.0) g/dl RDW 14.8 (11.0-16.0) % Plt Count 244 (160-400) X10*3/uL MPV 9.8 (9.4-12.3) fL Absolute Nucleated RBC 0.000 (0.0-0.012) X10*3/uL Nucleated RBC % (auto) 0.0 (0.0-0.2) /100WBC Sodium 141 (135-145) mmol/L Potassium 3.2 L (3.3-5.1) mmol/L Chloride 107 (96-108) mmol/L Carbon Dioxide 22 (22-29) mmol/L Anion Gap 15 (12-20) BUN 28 H (9-16) mg/dL Creatinine 0.69 (0.5-1.4) mg/dL Estim Creat Clear Calc 47.9 Estimated GFR > 60 Random Glucose 94 (60-115) mg/dL Calcium 9.1 (8.4-10.2) mg/dL Total Bilirubin 0.3 (0.0-1.0) mg/dL AST 12 (5-31) U/L ALT 8 (0-31) U/L Alkaline Phosphatase 63 (39-117) U/L Total Protein 6.1 L (6.5-8.0) g/dL Albumin 3.2 L (3.5-5.0) g/dL Urine Color Yellow Urine Appearance Turbid Urine pH 6.5 (5.0-9.0) Ur Specific [place] 1.015 (1.005-1.025) Urine Protein 30 (1+) H (Neg-Trace) mg/dL Urine Glucose (UA) Negative (Negative) mg/dL Urine Ketones Negative (Negative) mg/dL Urine Blood Large (3+) H (Negative) Urine Nitrite Negative (Negative) Ur Leukocyte Esterase Large (3+) H (Negative) Urine RBC 6-10 H (0-2) /HPF Urine WBC >50 H (0-5) /HPF Ur Squamous Epith Cells 6-10 (0-2) /HPF Urine Bacteria 4+ (None Seen) Hyaline Casts 6-10 (0-2) /LPF Discharge Plan Discharge Clinical Impression: Blocked suprapubic catheter Patient Disposition: Xfer SNF Transfer Details: 22 Kittitian Shaver catheter was placed , urine shows wbc's which seems to be chronic CBC normal. Instructions: Shaver Catheter Placement and Care (ED) Additional Instructions: Care of Shaver catheter as advised Prescriptions: No Action cefdinir 300 mg capsule 300 mg PO BID 7 Days Qty: 14 0RF acetaminophen [Tylenol] 325 mg Tablet 650 mg PO Q6H PRN (Reason: Pain) benztropine 0.5 mg Tablet 0.5 mg PO DAILY bisacodyl 10 mg Suppository 10 mg SC DAILY PRN (Reason: Constipation) calcium carbonate [Calcium Antacid] 200 mg calcium (500 mg) Tablet,Chewable 200 mg PO DAILY bisacodyl 5 mg Tablet,Delayed Release (Dr/Ec) 10 mg PO BEDTIME PRN (Reason: Constipation) duloxetine 60 mg Capsule,Delayed Release(Dr/Ec) 60 mg PO DAILY menthol-zinc oxide [Calmoseptine] 0.44-20.6 % Ointment 1 appl TOPICAL BID Rx Instructions: apply to coccyx/buttocks baclofen 5 mg Tablet 15 mg PO TID sennosides [senna] 8.6 mg Tablet 8.6 mg PO DAILY polyethylene glycol 3350 [Miralax] 17 gram Powder In Packet 17 g PO Q OTHER DAY magnesium hydroxide [Milk of Magnesia] 400 mg/5 mL Suspension 30 ml PO DAILY PRN (Reason: Constipation) methenamine mandelate 1 gram Tablet 1 g PO BID Rx Instructions: administer after meals and at bedtime omeprazole 20 mg Capsule,Delayed Release(Dr/Ec) 20 mg PO DAILY@0630 furosemide 20 mg Tablet 20 mg PO DAILY nystatin 100,000 unit/gram Powder 1 appl TOPICAL TID PRN (Reason: Rash) Rx Instructions: apply to affected rash areas estradiol 0.01 % (0.1 mg/gram) Cream 1 appful VAGINAL MOWEFR@2100 Rx Instructions: for 14 days oxybutynin chloride 5 mg Tablet 5 mg PO DAILY Icy Hot (menthol) 5 % Adhesive Patch,Medicated 1 patch TOPICAL DAILY Rx Instructions: apply to bilateral knees metoprolol tartrate 25 mg Tablet 25 mg PO BID Myrbetriq 50 mg Tablet Extended Release 24 Hr 50 mg PO DAILY cefuroxime axetil 500 mg tablet 500 mg PO BID Qty: 8 0RF
--- NOTE | 2022-10-07 21:40 | PC.NURSE ---
This RN contacted [facility] to confirm catheter size
[2022-10-07 22:28] VITALS: BP 145/75; PULSE 79; RESP 17; TEMP 36.7; O2SAT 95
[2022-10-07 23:55] VITALS: BP 167/82; PULSE 74; RESP 22; TEMP 36.7; O2SAT 95
[2022-10-08 00:03] LABS: Appearance Urine Turbid; Color Urine Yellow; Glucose Urine UA Negative (Negative); Leukocyte Esterase Urine Large (3+) (Negative); Nitrite Urine Negative (Negative); PH 6.5 (5.0-9.0); Specific Gravity - Urine 1.015 (1.005-1.025); UMIC TRIGGER UACC YES; Urine Blood Large (3+) (Negative); Urine Ketones Negative (Negative); Urine Protein 30 (1+) mg/dL (Neg-Trace)
[2022-10-08 00:17] LABS: Bacteria Urine 4+ (None Seen); UACC Culture Trigger YES; WBC Urine >50 /HPF (0-5)
--- NOTE | 2022-10-08 03:52 | PC.NURSE ---
Nurse to Nurse report given to Radha at [facility]. Provide discharge summary
[2022-10-08 03:54] VITALS: BP 176/89; PULSE 74; RESP 17; TEMP 36.8; O2SAT 96
== END 2022-10-08 04:17 | disposition skilled nursing facility (03) ==
PROVIDERS: Emergency Provider Internal Medicine
DX: T83.098A Other mechanical complication of other urinary catheter, initial encounter (principal); I10 Essential (primary) hypertension; Y73.8 Miscellaneous gastroenterology and urology devices associated with adverse incidents, not elsewhere classified; Y92.9 Unspecified place or not applicable; Z79.899 Other long term (current) drug therapy
CPT/HCPCS: 36415; 51702; 80053; 81001; 81003; 85027; 87086; 99283; 99284

== ENCOUNTER 2022-12-13 15:36 | Emergency (ER) | payer MEDICARE, SELFPAY ==
[2022-12-13 16:22] VITALS: BP 160/79; BP 180/80; PULSE 86; RESP 16; O2SAT 97; BMI 17.4
--- NOTE | 2022-12-13 16:25 | PC.NURSE ---
[facility]fr 10cc)
[2022-12-13 18:49] VITALS: BP 181/85; PULSE 72; RESP 18; TEMP 36.6; O2SAT 92
--- NOTE | 2022-12-13 18:54 | ED.FEMALEGU ---
HPI - Female Genitourinary General Chief complaint: Urogenital-Female Stated complaint: CATHETER REPLACEMENT Time Seen by Provider: 12/13/22 16:03 Source: patient, RN notes reviewed and old records reviewed Mode of arrival: EMS Limitations: other (History of MS, poor historian) History of Present Illness HPI Narrative: 77-year-old female presents for evaluation of a leaking suprapubic catheter. She has a history of MS and neurogenic bladder Apparently at her facility today she had urine leaking from around the catheter There have not been any fevers or complaints of abdominal pain Related Data Home Medications Medication Instructions Recorded Confirmed acetaminophen 325 mg tablet 650 mg PO Q6H PRN Pain 06/14/22 06/14/22 (Tylenol) baclofen 5 mg tablet 15 mg PO TID 06/14/22 06/14/22 benztropine 0.5 mg tablet 0.5 mg PO DAILY 06/14/22 06/14/22 bisacodyl 10 mg rectal suppository 10 mg MN DAILY PRN Constipation 06/14/22 06/14/22 bisacodyl 5 mg tablet,delayed 10 mg PO BEDTIME PRN Constipation 06/14/22 06/14/22 release calcium carbonate 200 mg calcium 200 mg PO DAILY 06/14/22 06/14/22 (500 mg) chewable tablet (Calcium Antacid) duloxetine 60 mg capsule,delayed 60 mg PO DAILY 06/14/22 06/14/22 release estradiol 0.01% (0.1 mg/gram) 1 appful vaginal MOWEFR@2100 06/14/22 06/14/22 vaginal cream furosemide 20 mg tablet 20 mg PO DAILY 06/14/22 06/14/22 magnesium hydroxide 400 mg/5 mL 30 ml PO DAILY PRN Constipation 06/14/22 06/14/22 oral suspension (Milk of Magnesia) menthol 0.44 %-zinc oxide 20.6 % 1 appl topical BID 06/14/22 06/14/22 topical ointment (Calmoseptine) menthol 5 % topical patch (Icy Hot 1 patch topical DAILY 06/14/22 06/14/22 (menthol)) methenamine mandelate 1 gram tablet 1 g PO BID 06/14/22 06/14/22 metoprolol tartrate 25 mg tablet 25 mg PO BID 06/14/22 06/14/22 mirabegron 50 mg tablet,extended 50 mg PO DAILY 06/14/22 06/14/22 release 24 hr (Myrbetriq) nystatin 100,000 unit/gram topical 1 appl topical TID PRN Rash 06/14/22 06/14/22 powder omeprazole 20 mg capsule,delayed 20 mg PO DAILY@0630 06/14/22 06/14/22 release oxybutynin chloride 5 mg tablet 5 mg PO DAILY 06/14/22 06/14/22 polyethylene glycol 3350 17 gram 17 g PO Q OTHER DAY 06/14/22 06/14/22 oral powder packet (Miralax) sennosides 8.6 mg tablet (senna) 8.6 mg PO DAILY 06/14/22 06/14/22 Previous Rx's Medication Instructions Recorded cefuroxime axetil 500 mg tablet 500 mg PO BID #8 tabs 06/16/22 cefdinir 300 mg capsule 300 mg PO BID 7 days #14 caps 09/10/22 sulfamethoxazole 800 1 tab PO Q12H #14 tabs 12/13/22 mg-trimethoprim 160 mg tablet (Bactrim DS) Allergies Allergy/AdvReac Type Severity Reaction Status Date / Time No Known Allergies Allergy Verified 06/14/22 07:32 Review of Systems Constitutional: Constitutional: Denies chills and Denies fever(s) Gastrointestinal: Gastrointestinal: Reports abdominal pain, Denies nausea and Denies vomiting Genitourinary: Comments: Urine leaking from around the catheter site Musculoskeletal: Musculoskeletal: Denies back pain Integumentary/Breasts: Skin/Breast: Denies rash PMFSH Past Medical History Medical History Depression HTN (hypertension) Multiple sclerosis Neuromuscular dysfunction of bladder Suprapubic catheter Social History Social History Housing: Senior Living Alcohol intake: former Patient Tobacco Use Status: Never used Tobacco Advance Directives: No Advance Directives Information Provided: No service: No Current occupational status: unemployed Physical Exam Vital Signs: Vital Signs: Last Vital Signs Temp 98.7 F 12/13/22 21:00 Pulse 65 12/13/22 21:00 Resp 18 12/13/22 21:00 BP 190/78 H 12/13/22 21:00 Pulse Ox 100 12/13/22 21:00 O2 Del Method Room Air 12/13/22 21:00 BMI result Body Mass Index 17.4 Const: General: comfortable, no acute distress, alert and awake HEENT: Head: Yes normocephalic and Yes atraumatic Eyes: Eyelids: Yes eyelids normal Conjunctivae: conjunctivae normal Sclerae: sclerae normal Corneas: corneas normal Pupils: Equal, round and reactive pupils present EOM: EOMs intact bilaterally Neck: Neck: Yes full ROM Resp: Effort & Inspection: normal respiratory effort, able to speak in complete sentences and not labored Cardio: Rate: regular rate Rhythm: regular rhythm GI: Other: Suprapubic catheter in place Inspection: No distended Palpation (GI): Soft to palpation, not firm, nontender, no guarding and not rigid Auscultation: normoactive bowel sounds Skin: General skin exam: no rashes or lesions noted and elasticity normal Neuro: Cranial nerves: Yes Equal, round and reactive pupils present and Yes Bilaterally intact EOM present Course Reevaluation(s) Reevaluation #1: Patient has clear urinary tract infection with significant sediment that was even growing on the previous catheter, we will treat with Bactrim double-strength x7 days Time: 21:39 Medical Decision Making Medical Decision Making MDM Narrative: 77-year-old female presents for evaluation of urine leaking around her suprapubic catheter The patient has a 22 Jamaican suprapubic catheter. I deflated the balloon, removed the catheter. There was slight resistance and when the catheter was removed there were some gross on the and/adhered to the catheter. Urine immediately started to leak out of the catheter site. I was easily able to introduce a 22 Jamaican new suprapubic catheter into the bladder with immediate return of foul-smelling urine with thick sediment. Plan for UA, but the patient is afebrile and hypertensive, no evidence of sepsis. Differential Diagnosis Differential Diagnoses: The differential diagnosis associated with the presentation includes Suprapubic catheter malfunction UTI Blocked catheter Lab Data Labs: Lab Results 12/13/22 Range/Units 21:03 Urine Color Yellow Urine Appearance Turbid Urine pH 8.0 (5.0-9.0) Ur Specific [place] 1.015 (1.005-1.025) Urine Protein 100 (2+) H (Neg-Trace) mg/dL Urine Glucose (UA) Negative (Negative) mg/dL Urine Ketones Negative (Negative) mg/dL Urine Blood Moderate (2+) H (Negative) Urine Nitrite Negative (Negative) Ur Leukocyte Esterase Large (3+) H (Negative) Discharge Plan Discharge Clinical Impression: Urinary tract infection, Blocked suprapubic catheter, Neurogenic bladder Patient Disposition: Home, Self-Care Instructions: Urinary Tract Infection in Women (ED) Additional Instructions: Take Bactrim twice daily for the next 7 days Take all of your other medications as prescribed Your suprapubic catheter was changed today Follow-up with your primary doctor Prescriptions: New sulfamethoxazole-trimethoprim [Bactrim DS] 800-160 mg tablet 1 tab PO Q12H Qty: 14 0RF No Action cefdinir 300 mg capsule 300 mg PO BID 7 Days Qty: 14 0RF acetaminophen [Tylenol] 325 mg Tablet 650 mg PO Q6H PRN (Reason: Pain) benztropine 0.5 mg Tablet 0.5 mg PO DAILY bisacodyl 10 mg Suppository 10 mg MN DAILY PRN (Reason: Constipation) calcium carbonate [Calcium Antacid] 200 mg calcium (500 mg) Tablet,Chewable 200 mg PO DAILY bisacodyl 5 mg Tablet,Delayed Release (Dr/Ec) 10 mg PO BEDTIME PRN (Reason: Constipation) duloxetine 60 mg Capsule,Delayed Release(Dr/Ec) 60 mg PO DAILY menthol-zinc oxide [Calmoseptine] 0.44-20.6 % Ointment 1 appl TOPICAL BID Rx Instructions: apply to coccyx/buttocks baclofen 5 mg Tablet 15 mg PO TID sennosides [senna] 8.6 mg Tablet 8.6 mg PO DAILY polyethylene glycol 3350 [Miralax] 17 gram Powder In Packet 17 g PO Q OTHER DAY magnesium hydroxide [Milk of Magnesia] 400 mg/5 mL Suspension 30 ml PO DAILY PRN (Reason: Constipation) methenamine mandelate 1 gram Tablet 1 g PO BID Rx Instructions: administer after meals and at bedtime omeprazole 20 mg Capsule,Delayed Release(Dr/Ec) 20 mg PO DAILY@0630 furosemide 20 mg Tablet 20 mg PO DAILY nystatin 100,000 unit/gram Powder 1 appl TOPICAL TID PRN (Reason: Rash) Rx Instructions: apply to affected rash areas estradiol 0.01 % (0.1 mg/gram) Cream 1 appful VAGINAL MOWEFR@2100 Rx Instructions: for 14 days oxybutynin chloride 5 mg Tablet 5 mg PO DAILY Icy Hot (menthol) 5 % Adhesive Patch,Medicated 1 patch TOPICAL DAILY Rx Instructions: apply to bilateral knees metoprolol tartrate 25 mg Tablet 25 mg PO BID Myrbetriq 50 mg Tablet Extended Release 24 Hr 50 mg PO DAILY cefuroxime axetil 500 mg tablet 500 mg PO BID Qty: 8 0RF
--- NOTE | 2022-12-13 20:14 | PC.NURSE ---
This writter assumed care of this Pt at 1900. Pt A&O to self, Pt reports constant pain to suprapibic cath site. New 22F, 30CC balloon Cath placed by provider Monica, Pt tolerated well.
[2022-12-13 21:00] VITALS: BP 190/78; PULSE 65; RESP 18; TEMP 37.1; O2SAT 100
--- NOTE | 2022-12-14 00:52 | PC.NURSE ---
Nurse to nurse given to Radha at [facility]. Pt transferred back via ambulance, Pt aware of plan.
== END 2022-12-14 00:53 | disposition home or self-care (01) ==
PROVIDERS: Emergency Provider Internal Medicine; PCP Physician Assistant Medical
DX: N39.0 Urinary tract infection, site not specified (principal); N31.9 Neuromuscular dysfunction of bladder, unspecified; R10.2 Pelvic and perineal pain; Z79.899 Other long term (current) drug therapy
CPT/HCPCS: 81001; 87086; 99284

== ENCOUNTER 2023-04-03 12:07 | Emergency (ER) | payer MEDICARE, SELFPAY ==
[2023-04-03 12:21] VITALS: BP 110/62; BP 168/102; PULSE 62; PULSE 88; RESP 13; TEMP 36.8; O2SAT 99; BMI 19.9
--- NOTE | 2023-04-03 13:42 | PC.NURSE ---
pt brought in from [facility] via ambulance, baseline alert, oriented to self. she denies pain. per ems pt's supra-pubic catheter is leaking and blocked. ems reported that the she desatted to 88% on the way here, she was placed on 4L n/c increased to 96-97%. on arrival to the er her b/p was 168/102 taken on her R arm. b/p on her L arm was consistent with her R. 22g iv was inserted in her R forearm, pt tolerated well.
--- NOTE | 2023-04-03 14:00 | PHA.MEDREC ---
Pharmacy Consult ? Medication Reconciliation Pharmacy has completed the medication reconciliation. Med list from [facility].
--- NOTE | 2023-04-03 15:11 | ED_ITS ---
HPI - Female Genitourinary General Chief complaint: Urogenital-Female Stated complaint: F/C BLOCKED PER EMS Time Seen by Provider: 04/03/23 15:11 History of Present Illness HPI Narrative: The patient is a 77-year-old woman with a long-term suprapubic catheter who lives at a local retirement. Apparently her catheter does not seem to be functioning today and her urine was leaking around the catheter. She was sent to the emergency room for this reason. The patient denies other complaints aside from a mild headache. She does not feel ill. No fever, sweats, chills. No shortness of breath. No cough. Paramedics were concerned that she had desaturated in route to the hospital but she has had no complaints of shortness of breath or cough and she does not feel short of breath. Related Data Home Medications Medication Instructions Recorded Confirmed acetaminophen 325 mg tablet 650 mg PO Q6H PRN Pain 06/14/22 04/03/23 (Tylenol) benztropine 0.5 mg tablet 0.5 mg PO DAILY 06/14/22 04/03/23 bisacodyl 10 mg rectal suppository 10 mg SC DAILY PRN Constipation 06/14/22 04/03/23 bisacodyl 5 mg tablet,delayed 10 mg PO BEDTIME PRN Constipation 06/14/22 04/03/23 release calcium carbonate 200 mg calcium 200 mg PO DAILY 06/14/22 04/03/23 (500 mg) chewable tablet (Calcium Antacid) duloxetine 60 mg capsule,delayed 60 mg PO DAILY 06/14/22 04/03/23 release estradiol 0.01% (0.1 mg/gram) 1 appful vaginal MOWEFR@2100 06/14/22 04/03/23 vaginal cream furosemide 20 mg tablet 20 mg PO DAILY 06/14/22 04/03/23 magnesium hydroxide 400 mg/5 mL 30 ml PO DAILY PRN Constipation 06/14/22 04/03/23 oral suspension (Milk of Magnesia) menthol 5 % topical patch (Icy Hot 1 patch topical DAILY 06/14/22 04/03/23 (menthol)) metoprolol tartrate 25 mg tablet 25 mg PO BID 06/14/22 04/03/23 mirabegron 50 mg tablet,extended 50 mg PO DAILY 06/14/22 04/03/23 release 24 hr (Myrbetriq) nystatin 100,000 unit/gram topical 1 appl topical TID PRN Rash 06/14/22 04/03/23 powder omeprazole 20 mg capsule,delayed 20 mg PO DAILY@0630 06/14/22 04/03/23 release oxybutynin chloride 5 mg tablet 5 mg PO DAILY 06/14/22 04/03/23 polyethylene glycol 3350 17 gram 17 g PO BID 06/14/22 04/03/23 oral powder packet (Miralax) sennosides 8.6 mg tablet (senna) 8.6 mg PO DAILY 06/14/22 04/03/23 ascorbic acid (vitamin C) 500 mg 500 mg PO BID 04/03/23 04/03/23 tablet (Vitamin C) baclofen 20 mg tablet 20 mg PO TID 04/03/23 04/03/23 mirtazapine 15 mg tablet 15 mg PO BEDTIME 04/03/23 04/03/23 multivitamin with minerals 1 tab PO DAILY 04/03/23 04/03/23 nitrofurantoin macrocrystal 100 mg 100 mg PO DAILY 04/03/23 04/03/23 capsule Allergies Allergy/AdvReac Type Severity Reaction Status Date / Time No Known Allergies Allergy Verified 04/03/23 12:33 Review of Systems 2 Review of Systems: Yes all other systems are reviewed and are negative PMFSH Past Medical History Medical History Depression HTN (hypertension) Multiple sclerosis Neuromuscular dysfunction of bladder Suprapubic catheter Social History Social History Housing: Half-Way Alcohol intake: never Patient Tobacco Use Status: Never used Tobacco Advance Directives: No service: No Current occupational status: unemployed Physical Exam 2 Vital Signs: Vital Signs: Last Vital Signs Temp 98.2 F 04/03/23 12:21 Pulse 59 04/03/23 16:56 Resp 12 04/03/23 16:56 BP 190/78 H 04/03/23 16:56 Pulse Ox 97 04/03/23 16:56 O2 Del Method Room Air 04/03/23 16:56 Oxygen Flow Rate 2 04/03/23 12:21 BMI result Body Mass Index 19.9 Const: Other: The patient is very frail, chronically ill-appearing 77-year-old who does not appear in acute distress. HEENT: Other: No facial asymmetry. Airway clear. Mucous membranes moist. Eyes: Other: Pupils are round equal, conjunctivae are clear, extraocular movements intact Neck: Other: No JVD Resp: Effort & Inspection: normal respiratory effort Auscultation: clear to auscultation bilaterally Cardio: Rate: regular rate Rhythm: regular rhythm Heart sounds: S1 normal heart sound present and S2 normal heart sound present GI: Other: Patient has a suprapubic catheter in the lower abdomen. The abdomen seemed soft although there was fullness in the lower abdomen in the region of the suprapubic catheter. Skin: Other: Skin was dry and unremarkable. Neuro: Other: The patient is awake. She has a somewhat vague demeanor. However her speech is clear, her face is symmetrical, and the tone of her extremities is symmetrical. Extrem: Other: No peripheral edema Medications Administered Discontinued Medications Generic Name Dose Route Start Last Admin Trade Name Freq PRN Reason Stop Dose Admin Lidocaine HCl 10 ml 04/03/23 15:14 04/03/23 16:11 Lidocaine Hcl 2 % Urojet 10 Ml Jel.Pf.Rudy TOPICAL 04/03/23 15:15 10 ml ONCE ONE Administration Medical Decision Making Medical Decision Making [facility] Narrative: The patient is a 77-year-old female with a history of multiple sclerosis and a longstanding suprapubic catheter required because of neuromuscular dysfunction of the bladder. She was sent to the hospital today because of catheter dysfunction. There was no drainage from the catheter and her urine was leaking around the catheter. The patient does not feel ill otherwise and did not have other complaints. There was no report of fever or other infectious symptoms. My initial plan was to remove the catheter and simply place a new catheter. However when I attempted to deflate the balloon of the existing catheter I was unable to evacuate any fluid from the catheter balloon. With bedside ultrasound it was apparent the balloon was full. I then cut the catheter with the scissors to see if the fluid would drain spontaneously. This did not produce any evacuation of fluid or change in the volume of the balloon and I was still unable to remove the catheter. I spoke to the on-call urologist, Dr. Irwin Anderson, who recommended an attempted deflation of the balloon by puncturing it with a needle. I prepped the skin with Betadine. I then pulled the catheter so that the balloon would be as close to the stoma as possible. I then used an 18 gauge Angiocath. I advanced the Angiocath slightly to cover the tip of the needle. With the needle thus protected I slid the Angiocath adjacent to the catheter through the stoma until I met resistance. I then advanced the tip of the needle and there was a pop and a flow of water through the catheter. With a balloon thus deflated I was able to remove the catheter and place a new catheter under sterile conditions. The urine which comes through the new catheter is mucousy but I suspect this is a consequence of the patient's chronic catheterization. The patient does not have a fever, she does not have an elevated white count, and she does not have any symptoms of an infectious illness and so I do not see an indication for sending a urinalysis or considering antibiotics. I think she may return to her facility. She was given a dose of Tylenol for her complaint of a mild headache. Lab Data 04/03/23 17:07 04/03/23 17:07 Labs: Lab Results 04/03/23 Range/Units 17:07 WBC 9.7 (4.8-10.8) X10*3/uL RBC 4.99 (4.20-5.50) X10*6/uL Hgb 15.0 (12.0-16.0) g/dl Hct 44.5 (37.0-47.0) % MCV 89.2 (80.0-98.0) fL MCH 30.1 (27.0-33.0) pg MCHC 33.7 (31.0-35.0) g/dl RDW 14.0 (11.0-16.0) % Plt Count 264 (160-400) X10*3/uL MPV 9.5 (9.4-12.3) fL Immature Gran % (Auto) 0.2 (0.0-0.4) % Neut % (Auto) 73.2 H (45-73) % Lymph % (Auto) 16.3 L (20-40) % [place] % (Auto) 6.1 (2-11) % Eos % (Auto) 3.7 (0-4) % Baso % (Auto) 0.5 (0-2) % Lymph # (Auto) 1.6 (1.2-4.9) X10*3/uL [place] # (Auto) 0.6 (0.1-1.2) X10*3/uL Eos # (Auto) 0.4 (0.0-0.4) X10*3/uL Baso # (Auto) 0.1 (0.0-0.2) X10*3/uL Abs Immat Gran (auto) 0.02 (0.00-0.03) X10*3/uL Absolute Neuts (auto) 7.1 (2.0-8.3) x10*3/uL Absolute Nucleated RBC 0.000 (0.0-0.012) X10*3/uL Nucleated RBC % (auto) 0.0 (0.0-0.2) /100WBC Sodium 141 (135-145) mmol/L Potassium 3.5 (3.3-5.1) mmol/L Chloride 100 (96-108) mmol/L Carbon Dioxide 30 H (22-29) mmol/L Anion Gap 15 (12-20) BUN 18 H (9-16) mg/dL Creatinine 0.70 (0.5-1.4) mg/dL Estim Creat Clear Calc 44.4 Estimated GFR > 60 Random Glucose 80 (60-115) mg/dL Calcium 9.5 (8.4-10.2) mg/dL Procedures Procedure Narrative Procedure Narrative: Patient presented with nonfunctional chronic suprapubic catheter. Plan was to replace the suprapubic catheter. This was complicated by the fact that the balloon could not be deflated. After speaking with the on-call urologist I used an 18 gauge Angiocath to puncture the balloon by sliding the Angiocath adjacent to the catheter through the stoma until functioning the balloon. The catheter could then be removed. The patient was then re-prepped with Betadine and a 20 [place] catheter was placed without difficulty into the bladder and the balloon was inflated with 30 mL of water. The patient tolerated the procedure well. Discharge Plan Discharge Clinical Impression: Suprapubic catheter dysfunction Patient Disposition: Xfer [facility] Additional Instructions: The patient has a new 20 [place] suprapubic catheter. Please continue normal catheter care and other normal regimens. Prescriptions: No Action acetaminophen [Tylenol] 325 mg Tablet 650 mg PO Q6H PRN (Reason: Pain) benztropine 0.5 mg Tablet 0.5 mg PO DAILY bisacodyl 10 mg Suppository 10 mg SC DAILY PRN (Reason: Constipation) calcium carbonate [Calcium Antacid] 200 mg calcium (500 mg) Tablet,Chewable 200 mg PO DAILY bisacodyl 5 mg Tablet,Delayed Release (Dr/Ec) 10 mg PO BEDTIME PRN (Reason: Constipation) duloxetine 60 mg Capsule,Delayed Release(Dr/Ec) 60 mg PO DAILY sennosides [senna] 8.6 mg Tablet 8.6 mg PO DAILY polyethylene glycol 3350 [Miralax] 17 gram Powder In Packet 17 g PO BID magnesium hydroxide [Milk of Magnesia] 400 mg/5 mL Suspension 30 ml PO DAILY PRN (Reason: Constipation) omeprazole 20 mg Capsule,Delayed Release(Dr/Ec) 20 mg PO DAILY@0630 furosemide 20 mg Tablet 20 mg PO DAILY nystatin 100,000 unit/gram Powder 1 appl TOPICAL TID PRN (Reason: Rash) Rx Instructions: apply to affected rash areas estradiol 0.01 % (0.1 mg/gram) Cream 1 appful VAGINAL MOWEFR@2100 Rx Instructions: for 14 days oxybutynin chloride 5 mg Tablet 5 mg PO DAILY Icy Hot (menthol) 5 % Adhesive Patch,Medicated 1 patch TOPICAL DAILY Rx Instructions: apply to bilateral knees metoprolol tartrate 25 mg Tablet 25 mg PO BID Myrbetriq 50 mg Tablet Extended Release 24 Hr 50 mg PO DAILY baclofen 20 mg tablet 20 mg PO TID ascorbic acid (vitamin C) [Vitamin C] 500 mg Tablet 500 mg PO BID nitrofurantoin macrocrystal 100 mg capsule 100 mg PO DAILY mirtazapine 15 mg tablet 15 mg PO BEDTIME multivitamin with minerals Tablet 1 tab PO DAILY Referrals: [facility] [Outside] (Catheter replacement) Devaughn Byers MD [Primary Care Provider] -
[2023-04-03] MEDS: Lidocaine HCl 2 % Urojet 10 ML JEL.PF.APP TOPICAL (16:11)
[2023-04-03 16:56] VITALS: BP 190/78; PULSE 59; RESP 12; O2SAT 97
[2023-04-03 17:14] LABS: Basophils Absolute Auto 0.1 X10*3/uL (0.0-0.2); Basophils Percent Auto 0.5 % (0-2); Eosinophils Absolute Auto 0.4 X10*3/uL (0.0-0.4); Eosinophils Percent Auto 3.7 % (0-4); Hematocrit 44.5 % (37.0-47.0); Imm Gran Abs Auto 0.02 X10*3/uL (0.00-0.03); Imm Gran Pct Auto 0.2 % (0.0-0.4); Lymphocytes Absolute Auto 1.6 X10*3/uL (1.2-4.9); Lymphocytes Percent Auto 16.3 % (20-40); MANUAL DIFF FLAG NO; Mean Corpuscular HGB Conc 33.7 g/dl (31.0-35.0); Mean Corpuscular Hemoglobin 30.1 pg (27.0-33.0); Mean Corpuscular Volume 89.2 fL (80.0-98.0); Mean Platelet Volume 9.5 fL (9.4-12.3); Monocytes Absolute Auto 0.6 X10*3/uL (0.1-1.2); Monocytes Percent Auto 6.1 % (2-11); Neutrophils Absolute Auto 7.1 x10*3/uL (2.0-8.3); Neutrophils Percent Auto 73.2 % (45-73); Platelet Count 264 X10*3/uL (160-400); Red Blood Count 4.99 X10*6/uL (4.20-5.50); White Blood Count 9.7 X10*3/uL (4.8-10.8)
[2023-04-03 17:28] LABS: Anion Gap 15 (12-20); Blood Urea Nitrogen 18 mg/dL (9-16); Calcium 9.5 mg/dL (8.4-10.2); Carbon Dioxide 30 mmol/L (22-29); Chloride 100 mmol/L (96-108); Creatinine Clr Calc Pharmacy 44.4; Estimated Glomerular Filt Rate > 60; Glucose Random 80 mg/dL (60-115); Potassium 3.5 mmol/L (3.3-5.1); Sodium 141 mmol/L (135-145)
[2023-04-03] MEDS: Acetaminophen 325 MG TABLET 975 MG PO (17:55)
--- NOTE | 2023-04-03 17:59 | PC.NURSE ---
supra-pubic catheter removed and replaced by 20F catheter, new drainage bag applied. catheter patent.
--- NOTE | 2023-04-03 18:46 | PC.NURSE ---
Report given to AMARILIS Wynn. [facility] [phone]. Pt will be transported back to facility via ambulance. Pt aware of plan.
[2023-04-03 19:38] VITALS: BP 212/80; BP 232/106
[2023-04-03] MEDS: amLODIPine Besylate 10 MG TABLET PO (19:44)
[2023-04-03 20:07] VITALS: BP 175/71
== END 2023-04-03 20:40 | disposition skilled nursing facility (03) ==
PROVIDERS: Emergency Provider Emergency Medicine; PCP Family Medicine
DX: T83.038A Leakage of other urinary catheter, initial encounter (principal); Y82.8 Other medical devices associated with adverse incidents; N31.8 Other neuromuscular dysfunction of bladder; R51.9 Headache, unspecified; G35 Multiple sclerosis; I10 Essential (primary) hypertension; R54 Age-related physical debility; Z79.899 Other long term (current) drug therapy
CPT/HCPCS: 36415; 51702; 80048; 85025; 99284